=== PATIENT | female | born 1950 | race Caucasian/White ===

== ENCOUNTER → 2016-07-05 | Outpatient (CLI) | payer OTHER ==
[2014-08-25 18:43] VITALS: BP 124/64
[~2016-07-05] VITALS: Ht 162.6 cm; Wt 67.6 kg
[~2016-07-05] MED LIST: ALEN70TA3 PO; LISI10TA2 PO; MELO-150 PO; NORMAL SALINE IV ONE; SIMV5TAB5 PO; SINCALIDE IV ONE
--- NOTE | 2016-07-05 11:00 | RAD ---
Radionuclide hepatobiliary scan with gallbladder ejection fraction, 07/05/2016: History: Chronic epigastric pain Following IV injection of 5.5 mCi of technetium 99m Choletec there was prompt uptake of the radionuclide from the blood stream by the liver. Initial imaging out to one hour showed increasing activity in the gallbladder without extension into the small bowel. Following IV injection of 1.4 mcg of cholecystokinin activity does extend into the small bowel. There is good gallbladder emptying with the gallbladder ejection fraction calculated at 95%. IMPRESSION: 1. No evidence of cystic duct or common bile duct obstruction. 2. The gallbladder ejection fraction is 95%.
== END | disposition home or self-care (01) ==
LOC: NM 06:37
PROVIDERS: ATTEND Internal Medicine Gastroenterology
DX: R10.13 Epigastric pain (principal); R11.0 Nausea
CPT/HCPCS: 78226; 96374; 96375; J2805

== ENCOUNTER 2016-08-03 22:18 | Observation (INO) | payer OTHER ==
[~2016-08-03] VITALS: Ht 162.6 cm; Wt 67.3 kg
[~2016-08-03 22:18] MED LIST changes: -NORMAL SALINE IV ONE; -SINCALIDE IV ONE
--- NOTE | 2016-08-03 22:41 | PHYS DOC ---
Past Medical History Past Medical History: High Cholesterol, Hypertension Past Surgical History: Hysterectomy, Other Additional Past Surgical Histo: Exploratory abd sx Alcohol Use: Rarely Drug Use: None Adult General Chief Complaint Chief Complaint: CHEST PAIN [facility] HPI This a 66-year-old female with history of hypertension is presenting with 8-10 hours of substernal chest pain that she describes as a pressure sensation in her chest. She states it came on at rest while she was watching TV earlier today. She states she has no known cardiac history that she is aware of. Her last stress test was over 5 years ago. She is a nonsmoker. She rates her pain a 7 out of 10. Patient did recently travel to [place] one week ago which is a [address] She denies any history of blood clots. She denies any calf tenderness or swelling. Upon my initial assessment, the patient does not appear to be in any acute distress. She is saturating at 100% on room air. She is afebrile nontoxic in appearance. Blood pressure is elevated at 202/98. She states it usually runs in the 150s systolic. She takes lisinopril at night and has yet to take this dose. She denies any nausea or vomiting. She denies any significant shortness of breath. Activities do not make her pain worse. Review of Systems Review of Systems Constitutional: Denies fever or chills [] Eyes: Denies change in visual acuity, redness, or eye pain [] HENT: Denies nasal congestion or sore throat [] Respiratory: Denies cough, denies shortness of breath [] Cardiovascular: No additional information not addressed in HPI [] GI: Denies abdominal pain, nausea, vomiting, bloody stools or diarrhea [] : Denies dysuria or hematuria [] Musculoskeletal: Denies back pain or joint pain [] Integument: Denies rash or skin lesions [] Neurologic: Denies headache, focal weakness or sensory changes [] Endocrine: Denies polyuria or polydipsia [] Current Medications Current Medications Current Medications Medications (Trade) Dose Ordered Sig/Sheeba Start Time Stop Time Status Last Admin Dose Admin Aspirin (Jared Aspirin) 325 mg 1X ONCE 08/03/16 23:30 08/03/16 23:31 DC 08/03/16 23:29 325 MG Allergies Allergies Allergies Coded Allergies Type Severity Reaction Last Updated Verified Penicillins Allergy Intermediate Rash 08/25/14 Yes Physical Exam Physical Exam Constitutional: Well developed, well nourished, no acute distress, non-toxic appearance. [] HENT: Normocephalic, atraumatic, bilateral external ears normal, oropharynx moist, no oral exudates, nose normal. [] Eyes: PERRLA, EOMI, conjunctiva normal, no discharge. [] Neck: Normal range of motion, no tenderness, supple, no stridor. [] Cardiovascular:Heart rate regular rhythm, no murmur [] Lungs & Thorax: Bilateral breath sounds clear to auscultation [] Abdomen: Bowel sounds normal, soft, no tenderness, no masses, no pulsatile masses. [] Skin: Warm, dry, no erythema, no rash. [] Back: No tenderness, no CVA tenderness. [] Extremities: No tenderness, no cyanosis, no clubbing, ROM intact, no edema. [] Neurologic: Alert and oriented X 3, normal motor function, normal sensory function, no focal deficits noted. [] Psychologic: Affect normal, judgement normal, mood normal. [] Current Patient Data Vital Signs Vital Signs Date Time Temp Pulse Resp B/P (MAP) Pulse Ox O2 Delivery O2 Flow Rate FiO2 08/03/16 23:00 74 15 164/82 (109) 97 Room Air 08/03/16 22:44 98.4 98.4 Lab Values Laboratory Tests Test 08/03/16 22:33 White Blood Count 8.8 x10^3/uL (4.0-11.0) Red Blood Count 4.06 x10^6/uL (3.50-5.40) Hemoglobin 12.7 g/dL (12.0-15.5) Hematocrit 36.5 % (36.0-47.0) Mean Corpuscular Volume 90 fL (79-100) Mean Corpuscular Hemoglobin 31 pg (25-35) Mean Corpuscular Hemoglobin Concent 35 g/dL (31-37) Red Cell Distribution Width 13.1 % (11.5-14.5) Platelet Count 279 x10^3/uL (140-400) Neutrophils (%) (Auto) 47 % (31-73) Lymphocytes (%) (Auto) 40 % (24-48) Monocytes (%) (Auto) 9 % (0-9) Eosinophils (%) (Auto) 3 % (0-3) Basophils (%) (Auto) 1 % (0-3) Neutrophils # (Auto) 4.2 x10^3uL (1.8-7.7) Lymphocytes # (Auto) 3.5 x10^3/uL (1.0-4.8) Monocytes # (Auto) 0.8 x10^3/uL (0.0-1.1) Eosinophils # (Auto) 0.2 x10^3/uL (0.0-0.7) Basophils # (Auto) 0.1 x10^3/uL (0.0-0.2) D-Dimer (Elaina) 0.34 ug/mlFEU (0.00-0.50) Sodium Level 140 mmol/L (136-145) Potassium Level 4.0 mmol/L (3.5-5.1) Chloride Level 102 mmol/L (98-107) Carbon Dioxide Level 30 mmol/L (21-32) Anion Gap 8 (6-14) Blood Urea Nitrogen 17 mg/dL (7-20) Creatinine 1.0 mg/dL (0.6-1.0) Estimated GFR (Cockcroft-Gault) 55.1 Glucose Level 128 mg/dL (70-99) H Calcium Level 9.7 mg/dL (8.5-10.1) Troponin I Quantitative < 0.017 ng/mL (0.000-0.055) Laboratory Tests 08/03/16 22:33 Laboratory Tests 08/03/16 22:33 EKG EKG EKG as interpreted by co shows a sinus rhythm with a rate of 75 bpm. There is a leftward axis. There is no acute injury pattern on this EKG. Intervals are normal. There is no ectopy. Radiology/Procedures Radiology/Procedures One view chest as interpreted by me did not reveal an acute cardiopulmonary process. Course & Med Decision Making Course & Med Decision Making Pertinent Labs and Imaging studies reviewed. (See chart for details) 66-year-old female with ongoing chest pain will have full laboratory workup including a chest x-ray. Her EKG at this time is unremarkable. Due to her history of recent travel a d-dimer will also be ordered. Her laboratory workup and chest xray are unremarkable. Her troponin and d-dimer are negative. Patient was given a nitroglycerin tablet and a full aspirin. Her case was discussed with the hospitalist, Dr. Rai, who agreed to admit for chest pain rule out with cardiology consult and repeat troponins ordered for the floor. Dragon Disclaimer Dragon Disclaimer This electronic medical record was generated, in whole or in part, using a voice recognition dictation system. Departure Departure Impression: Primary Impression: Chest pain Disposition: HOME, SELF-CARE Admitting Physician: Sydney Rai Condition: STABLE Referrals: SOCORRO LEDESMA MD (PCP) CHANTELLE REYES DO August 03, 2016 22:41
[2016-08-03 22:47] LABS: BASO # 0.1 x10^3/uL (0.0-0.2); BASO % 1 % (0-3); EOS % 3 % (0-3); HEMATOCRIT 36.5 % (36.0-47.0); HEMOGLOBIN 12.7 g/dL (12.0-15.5); LYMPH # 3.5 x10^3/uL (1.0-4.8); LYMPH % 40 % (24-48); MEAN CORPUSCULAR HEMOGLOBIN 31 pg (25-35); MEAN CORPUSCULAR HGB CONC 35 g/dL (31-37); MEAN CORPUSCULAR VOLUME 90 fL (79-100); MONO % 9 % (0-9); NEUT % 47 % (31-73); PLATELET COUNT 279 x10^3/uL (140-400); RED BLOOD COUNT 4.06 x10^6/uL (3.50-5.40); RED CELL DISTRIBUTION WIDTH 13.1 % (11.5-14.5); WHITE BLOOD COUNT 8.8 x10^3/uL (4.0-11.0)
[2016-08-03 23:00] LABS: CALCIUM 9.7 mg/dL (8.5-10.1); GFR 55.1
[2016-08-03] MEDS ORDERED: ASPIRIN 325 MG TABLET PO ONE (23:30)
[2016-08-04] MEDS ORDERED: ACETAMINOPHEN 325 MG TABLET. PO PRN
[2016-08-04] MEDS ORDERED: NITROGLYCERIN SUBLINGUAL 0.4 MG BOTTLE OF 25. SL PRN
[2016-08-04] MEDS ORDERED: ONDANSETRON PF 4 MG/2 ML VIAL. IV PRN
[2016-08-04 00:55] VITALS: BP 163/68
[2016-08-04 02:00] VITALS: BP 110/48
--- NOTE | 2016-08-04 02:11 | ACF ---
Admission Forms Criteria CHEST PAIN Clinical Indications for Admission to Inpatient Care (Place 'X' for any and all applicable criteria): Admission is indicated for chest pain and ANY ONE of the following(1)(2)(3)(4)(5 ): [ ]I. Angina with acute coronary syndrome (Also use Myocardial Infarction or Angina guideline) [ ]II. Hemodynamic instability [ ]III. Angina needing acute intervention as indicated by ALL of the following( 11)(12): [ ]a) Unstable angina is present as indicated by angina that is ANY ONE of the following: [ ]i) New onset [ ]ii) Nocturnal [ ]iii) Prolonged at rest [ ]iv) Progressive [ ]b) Angina warrants acute intervention as indicated by ANY ONE of the following: [ ]i) Recurrent angina (e.g, not responding as previously to treatment) [ ]ii) Angina at rest or with low-level activities despite initial medical therapy [ ]iii) New or presumably new ST-segment depression on ECG [ ]iv) Signs or symptoms of heart failure (eg, dyspnea, pulmonary edema) [ ]v) New or worsening mitral regurgitation [ ]vi) Hemodynamic instability [ ]vii) Dangerous arrhythmia (eg, sustained ventricular tachycardia) [ ]viii) History of percutaneous coronary intervention within 6 months [ ]ix) History of coronary artery bypass graft surgery [ ]x) PRITI risk score of 2 or greater[A] [ ]xi) History of Diabetes(14) [ ]xii) High-risk cardiac ischemia findings on noninvasive testing (e.g, echocardiogram, treadmill testing, nuclear scan) [ ]xiii) Chronic renal insufficiency (ie, estimated GFR less than 60 mL/min/1.732m) [ ]xiv) Left ventricular ejection fraction less than 40% [ ]IV. Evidence of NC (eg, cardiac biomarkers positive, ST-segment elevation on ECG) also use Myocardial Infarction Criteria Form. [ ]V. Pulmonary edema [ ]. Respiratory distress [ ]VII. Chest pain indicative of serious diagnosis other than coronary artery disease (eg, aortic dissection) [ ]VIII. Contraindications and/or Inappropriate clinical situations for Observational Care in patients with Chest Pain, when ANY ONE of the following is required: [ ]a) Patient with risk factor for pulmonary embolism, acute coronary syndrome and myocardial infarction (18) [ ]b) Patient with Pulmonary embolism require an average LOS of 4.3 days, therefore emergency department observation management is inappropriate 18,23 [ ]c) Painful condition/s in the elderly, have the highest rate of recidivism after emergency department observation management (10.8%) 20,21,22 [ ]d) Elevated cardiac biomarker requires intensive and exhaustive care (19) [X]IX. General contraindications and/or Inappropriate clinical situations for Observational Care in patients with Chest Pain, when ANY ONE of the following is required: [X]a) Prediction of prolongation of LOS based on ANY ONE of the following may be considered as a contraindication for observational care 2, 3, 4, 5, 6, 7, 8, 9, 10, 11 [X]i) Age > 65 yrs. [ ]ii) Patient arriving by ambulance [ ]iii) Patient with high acuity [ ]iv) Patient requiring vital sign monitoring [ ]v) Patient on IV medication [ ]b) Systolic blood pressures 180mmHg 3,12 [ ]c) Patient with altered mental status including delirium and other alteration of consciousness, (3) [ ]d) Patient whose discharge disposition will be to a fci home or rehabilitation home should not be managed in Emergency Department Observation Unit. CMS rule requires 3 days hospital stay before such placement. 3,13 [ ]e) Patient with failure to thrive due to broad array of etiologies 3,16,17 [ ]f) Inability to ambulate 3,14 Extended stay beyond goal length of stay may be needed for (1)(28): [ ]a) Specific condition diagnosed after evaluation (eg, pulmonary embolism, aortic dissection) [ ]b) Unstable angina [ ]c) Continued suspicion of acute coronary syndrome with inability to complete needed cardiac evaluation (eg, patient clinically unable to undergo stress testing) [ ]d) Myocardial infarction (Contents from ANGINA and CHEST PAIN clinical indications for admission to inpatient care have been integrated in this form) The original [facility] content created by [employer] has been revised. The portions of the content which have been revised are identified through the use of italic text or in bold, and [facility] has neither reviewed nor approved the modified material. All other unmodified content is copyright [facility]. Please see references footnoted in the original [facility] edition 2016 Admission Criteria Met?: Yes TAMMY BRYANT August 04, 2016 02:10
[2016-08-04] MEDS ORDERED: CARV12.52 PO (03:57)
[2016-08-04] MEDS ORDERED: PANT40TA5 PO (03:58)
--- NOTE | 2016-08-04 06:05 | EKG ---
[facility] [address] [place] [address] Test Date: 2016-08-03 Test Time: 22:26:31 Pat Name: SCOTT ALCALA Department: Room: 209 Gender: F Core Blower: : 1950 Requested By: CHANTELLE REYES Order Number: [id number] Reading MD: Brett Wang Measurements Intervals [place] Rate: 75 P: 44 OK: 170 QRS: -4 QRSD: 78 T: 46 QT: 370 QTc: 416 Interpretive Statements SINUS RHYTHM Electronically Signed On 08-07-2016 9:33:17 CDT by Brett Wang
--- NOTE | 2016-08-04 07:14 | RAD ---
Exam performed: One view chest. Indication: chest pain Date of Service: 08/04/2016 12:25 AM 08/25/14 Single AP upright portable view chest findings: Cardiomediastinal silhouette is within limits of normal. No acute infiltrates, effusion or pneumothorax is detected. The bony structures are normal. Impression: No acute cardiopulmonary process is detected.
[2016-08-04 07:30] VITALS: BP 146/75
--- NOTE | 2016-08-04 10:04 | PDOC2 ---
JOSELYN WITT CRIMINALIST 08/04/16 1004: CARDIAC CONSULT DATE OF CONSULT Date of Consult DATE: 08/04/16 TIME: 09:59 REASON FOR CONSULT Reason for Consult: chest pain REFERRING PHYSICIAN Referring Physician: Dr. Adolph Lyle SOURCE Source: Chart review, Patient HISTORY OF PRESENT ILLNESS HISTORY OF PRESENT ILLNESS 66 year old female who developed substernal chest pressure without radiation about 0800 yesterday after eating a granola bar and drinking coffee while getting ready for work. No radiation of pain and no associated diaphoresis, dizziness or nausea. Pain persisted through the day and became more of a burning sensation yesterday evening. Has also had recent epigastric pain and had a negative HIDA scan in June. Troponin levels not consistent with AMI and no acute changes in EKG. Malignant HTN POA with SBP > 200. Pain was similar to what she had 2 years ago though more severe yesterday. Unclear when she had her last stress test. Currently pain free. Reason for Visit: chest pain PAST MEDICAL HISTORY Cardiovascular: HTN, Hyperlipidemia GI: GERD, Other (epigastric pain - evaluation negative for gallstones) Renal/: Other (renal calculi) Endocrine: Osteoporosis FAMILY HISTORY Family History: Cancer (lung, mother & father), Coronary Artery Disease ( sister with CABG in her late 60s), Diabetes (maternal GF), Heart Disease ( maternal GF) SOCIAL HISTORY Smoke: No ALCOHOL: none Drugs: None CURRENT MEDICATIONS CURRENT MEDICATIONS Current Medications Medications (Trade) Dose Ordered Sig/Sheeba Route PRN Reason Start Time Stop Time Status Last Admin Dose Admin Aspirin (Jared Aspirin) 325 mg 1X ONCE PO 08/03/16 23:30 08/03/16 23:31 DC 08/03/16 23:29 Nitroglycerin (Nitrostat) 0.4 mg PRN Q5MIN PRN SL CHEST PAIN 08/04/16 00:00 08/04/16 00:37 ALLERGIES ALLERGIES: Coded Allergies: Penicillins (Verified Allergy, Intermediate, Rash, 08/25/14) ROS Review of System 14 point review with pertinent positives in HPI PHYSICAL EXAM General: Alert, Oriented X3, Cooperative, No acute distress HEENT: Atraumatic, PERRLA Lungs: Clear to auscultation, Normal air movement Heart: Regular rate, Normal S1, Normal S2, No murmurs, Other (no carotid bruits ; CP not reproducible) Abdomen: Normal bowel sounds, Soft, No tenderness Extremities: No edema, Normal pulses Skin: No rashes Neuro: Normal speech Psych/Mental Status: Mental status NL, Mood NL MUSCULOSKELETAL: No deformity VITALS VITALS Vital Signs Date Time Temp Pulse Resp B/P (MAP) Pulse Ox O2 Delivery O2 Flow Rate FiO2 08/04/16 08:00 Room Air 08/04/16 07:30 97.9 74 18 146/75 (98) 97 97.9 LABS Lab: Laboratory Tests Test 08/03/16 22:33 08/04/16 05:50 White Blood Count 8.8 x10^3/uL (4.0-11.0) Red Blood Count 4.06 x10^6/uL (3.50-5.40) Hemoglobin 12.7 g/dL (12.0-15.5) Hematocrit 36.5 % (36.0-47.0) Mean Corpuscular Volume 90 fL (79-100) Mean Corpuscular Hemoglobin 31 pg (25-35) Mean Corpuscular Hemoglobin Concent 35 g/dL (31-37) Red Cell Distribution Width 13.1 % (11.5-14.5) Platelet Count 279 x10^3/uL (140-400) Neutrophils (%) (Auto) 47 % (31-73) Lymphocytes (%) (Auto) 40 % (24-48) Monocytes (%) (Auto) 9 % (0-9) Eosinophils (%) (Auto) 3 % (0-3) Basophils (%) (Auto) 1 % (0-3) Neutrophils # (Auto) 4.2 x10^3uL (1.8-7.7) Lymphocytes # (Auto) 3.5 x10^3/uL (1.0-4.8) Monocytes # (Auto) 0.8 x10^3/uL (0.0-1.1) Eosinophils # (Auto) 0.2 x10^3/uL (0.0-0.7) Basophils # (Auto) 0.1 x10^3/uL (0.0-0.2) D-Dimer (Elaina) 0.34 ug/mlFEU (0.00-0.50) Sodium Level 140 mmol/L (136-145) Potassium Level 4.0 mmol/L (3.5-5.1) Chloride Level 102 mmol/L (98-107) Carbon Dioxide Level 30 mmol/L (21-32) Anion Gap 8 (6-14) Blood Urea Nitrogen 17 mg/dL (7-20) Creatinine 1.0 mg/dL (0.6-1.0) Estimated GFR (Cockcroft-Gault) 55.1 Glucose Level 128 mg/dL (70-99) Calcium Level 9.7 mg/dL (8.5-10.1) Troponin I Quantitative < 0.017 ng/mL (0.000-0.055) < 0.017 ng/mL (0.000-0.055) IMAGES IMAGES CXR without acute findings EKG EKG no acute changes ECHOCARDIOGRAM ECHOCARDIOGRAM 08/2014: TTE: The left ventricular systolic function is normal and the ejection fraction is within normal range. The Ejection Fraction is 65-70%. There is mild concentric left ventricular hypertrophy. Doppler and Color-flow revealed trace to mild mitral regurgitation. Doppler and Color Flow revealed mild tricuspid regurgitation. The PA pressure was estimated at 36 mmHg. Doppler and Color Flow revealed trace pulmonic valvular regurgitation. ASSESSMENT/PLAN ASSESSMENT/PLAN 1. chest pain EKG and troponin levels not consistent with ? GERD or related to HTN given risk factors recommend MPI - she reports being unable to walk treadmill in non-ischemic MPI - may discharge later today 2. malignant HTN POA normalized reports not taking meds yesterday 3. HLD check FLP continue statin therapy Problems: MARTHA BELLO MD 08/05/16 0831: CARDIAC CONSULT ALLERGIES ALLERGIES: Coded Allergies: Penicillins (Verified Allergy, Intermediate, Rash, 08/25/14) ASSESSMENT/PLAN ASSESSMENT/PLAN Late entry for 08/04/2016 Pt. seen and examined. 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 Compliant with meds. Denies any syncope Normal exam. MPI negative. Possible apical defect, but cannot rule out artifact. Low risk overall Discussed with patient, if she has persistent fatigue may pursue cath. Will optimize BP first. Will f/u in 3-4 days in the office. Thanks for consult. ok to dc from CV perspective. Problems: JOSELYN WITT APRN August 04, 2016 10:04 MARTHA BELLO MD August 05, 2016 08:31
[2016-08-04 10:37] LABS: CHOLESTEROL/HDL RATIO 6.2
[2016-08-04 10:59] VITALS: BP 149/73
[2016-08-04] MEDS ORDERED: REGADENOSON 0.4 MG/5 ML DISP.SYRIN. IV ONE (12:30)
[2016-08-04] MEDS ORDERED: DILT180C64 (13:52)
[2016-08-04 14:34] VITALS: BP 169/77
[2016-08-04] MEDS ORDERED: LISINOPRIL 40 MG TABLET. PO SCH (15:00)
[2016-08-04] MEDS ORDERED: MELOXICAM 7.5 MG TABLET PO SCH (15:00)
[2016-08-04] MEDS ORDERED: PANTOPRAZOLE 40 MG TABLET.DR. PO SCH (15:00)
--- NOTE | 2016-08-04 16:01 | RAD ---
APPROVED REPORT Test Type: Pharmacological Stress Nurse/Tech: Dianne Hale R.N. Test Indications: chest pain Cardiac History: htn, Medications: see ehr Medical History: see ehr Resting ECG: sr Resting Heart Rate: 63 bpm Resting Blood Pressure: 171/72mmHg Pretest Chest Pain: No chest pain Nurse/Tech Notes Consent: The procedure was explained to the patient in lay terms. Informed consent was witnessed. Miguel eout was entered into [employer]. History and Stress Test performed by Dianne Hale R.N. Pharm. Details Pharmacologic stress testing was performed using 0.4mg per 5ml of regadenoson given intravenously ove r 7-10 seconds. Stress Symptoms No chest pain or symptoms.Dyspnea POST EXERCISE Reason for Termination: Infusion complete Target HR: No Max HR: 115 bpm Max Blood Pressure: 170/72mmHg Chest Pain: No. Arrhythmia: No. ST Change: No. INTERPRETATION Stress EKG Conclusion: No evidence of stress induced EKG changes. Imaging Protocol IMAGE PROTOCOL: Rest Tc-99m/stress Tc-99m 1 day Rest: Stress: Viability: Radiopharm.Tc99m [id number] Sestamibi Soio78iKy 33mCi Duration 20min. 15min. Img Date 08/04/2016 08/04/2016 Inj-Img [id number]. 60min. Rest Admin Site:IV - Left AntecubitalAdministrator:RT Abhijit (R)(N) Stress Admin Site: IV - Left AntecubitalAdministrator: RT Abhijit (R)(N) STRESS DATA End Diast. Vol.55.0mlAv. Heart Rate77.0bpm LVEDV index BSA1.0mlCardiac Output0.1L/min End Syst. Vol.4.0mlCO Index BSA3.9L/min LVESV index BSA0.0mlMyocardial Jxhv039.0g Eject. Vilivuxs12.0% Stress Rates Pk. Fill Rate3.53EDV/secLVtime Pk. Fill 197.71msec Pk. Empty Rate4.59ESV/secLVtime Pk. Irfdj547.02msec 03/28 Pk. Fill1.52EDV/sec Stress Scores Regional WT0.00Summed WT0.00 Regional WM0.00Summed WM0.00 LV Perfusion There is a very minimal perfusion defect noted at the apex that appears to be fully reversible but no t quantified on automated evaluation. This is likely artifactual in nature and likely does not repres ent significant ischemia. Wall Motion Normal wall motion with EF > 70%. LV Perf. Quant 17 Seg. SSS1.00 17 Seg. SRS0.00 17 Seg. SDS1.00 Stress Defect Extent (% LAD)0.00Rest Defect Extent (% LAD)0.00Rev. Defect Extent (% LAD)0.00 Stress Defect Extent (% LCX) 0.00Rest Defect Extent (% LCX)0.00Rev. Defect Extent (% LCX)0.00 Stress Defect Extent (% RCA)0.00Rest Defect Extent (% RCA)0.00Rev. Defect Extent (% RCA)0.00 Stress Defect Extent (% MARBIN)0.00Rest Defect Extent (% MARBIN)0.00Rev. Defect Extent (% MARBIN)0.00 Other Information Quality:Average Risk Assessment: Low Risk Conclusion 1. No evidence of stress induced EKG changes. 2. Minimal apical perfusion defect, likely artifact. 3. Normal EF at > 70% 4. Low risk study
[2016-08-04] MEDS ORDERED: CARVEDILOL 12.5 MG TABLET. PO SCH (17:00)
[2016-08-04 17:49] VITALS: BP 160/77
--- NOTE | 2016-08-04 19:11 | SSS ---
ADMIT DATE: 08/04/2016 CHIEF COMPLAINT: Chest pain. HISTORY OF PRESENT ILLNESS: The patient is a 66-year-old woman with history of GERD, who presented to the Emergency Room with substernal chest pain in the lower half of her chest. She denies any radiation to anywhere, denies any nausea, vomiting, diaphoresis or shortness of breath. She relates that the pain essentially started in the morning when she was eating a granola bar for breakfast. This seems to be sitting wrong in her stomach all day long. She had mentioned it to her colleagues at work and was recommended to go to the Emergency Room. When pain persisted in the evening, she followed the advice and presented to the ER. Currently, her pain is actually gone. She denies any other symptoms. PAST MEDICAL HISTORY: GERD, actually has had workup for upper abdominal issues including ultrasound for gallbladder disease and HIDA scan; hypertension, hyperlipidemia and osteoporosis. FAMILY HISTORY: Positive for coronary artery disease with sister in her is late 67 of CABG, diabetes and heart disease. SOCIAL HISTORY: Lives with her , still works part-time as a welder apprentice. No toxic habits. ALLERGIES: PENICILLINS. MEDICATIONS: MAR reconciled with home medications. REVIEW OF SYSTEMS: Symptoms currently resolved, has no symptoms in entire organ system review. PHYSICAL EXAMINATION: VITAL SIGNS: From today show a blood pressure of 149/73, heart rate of 68, respiratory rate at 18. She is afebrile. GENERAL: This is a 66-year-old woman, well-nourished, well-developed. HEENT: Shows no scleral icterus. NECK: Supple. LUNGS: Clear to auscultation bilaterally. HEART: Regular rate and rhythm without any murmurs. ABDOMEN: Has positive bowel sounds, soft, nontender. EXTREMITIES: Show no edema, no clubbing, no cyanosis. SKIN: Warm, soft and dry without any rash. LABORATORY DATA: CBC with a WBC of 8.8, hemoglobin 12.7, platelets of 279. Chemistries with a BUN and creatinine of 17 and 1, normal electrolytes. Troponins negative x 3. LFTs obtained with a cholesterol of 186, triglycerides 199. IMAGING STUDIES: Chest x-ray from the Emergency Room shows no acute cardiopulmonary process. MPI obtained earlier today, shows no evidence of stress induced EKG changes, minimal apical perfusion defect likely artifact and normal EF at greater than 70 all in all a low-risk study. ASSESSMENT AND PLAN: The patient is a 66-year-old woman, who presented with atypical chest pain and with a history of gastroesophageal reflux disease. The pain was slightly different in location than prior, she was worked up for heart issues including stress test, which was negative. No further interventions will be indicated. Symptoms have resolved. DISCHARGE DATE: 08/04/2016. DISCHARGE DISPOSITION: To home. DISCHARGE CONDITION: Improved. DISCHARGE DIAGNOSIS: Gastroesophageal reflux disease. DISCHARGE MEDICATIONS: Please refer to MAR. DISCHARGE INSTRUCTIONS: The patient will follow up with PCP within 1 week. Consider EGD. Consider changing Fosamax to zoledronic acid infusion. TRES BANUELOS MD DR: UR/nts JOB#: [id number] / [id number] [facility]ORRO Bowser [facility]
[2016-08-04] MEDS ORDERED: SIMVASTATIN 10 MG TABLET PO SCH (21:00)
[2016-08-11] MEDS ORDERED: NON FORMULARY ITEM (Alendronate Sodium (Fosamax) 70 MG) PO SCH (09:00)
== END 2016-08-04 18:33 | disposition home or self-care (01) ==
LOC: ER 22:18 → 2 NORTH 23:31 → INTOOBSV 23:31
PROVIDERS: ADMIT Internal Medicine; ATTEND Internal Medicine
DX: K21.9 Gastro-esophageal reflux disease without esophagitis (principal); E78.00 Pure hypercholesterolemia, unspecified; E78.5 Hyperlipidemia, unspecified; I10 Essential (primary) hypertension; M81.0 Age-related osteoporosis without current pathological fracture; Z87.442 Personal history of urinary calculi; Z90.710 Acquired absence of both cervix and uterus
CPT/HCPCS: 36415; 71010; 78452; 80048; 80061; 84484; 85027; 85379; 93005; 93017; 96375; 96376; 99285; A9500; G0378; J2785; 96374; G0379

== ENCOUNTER → 2017-03-02 | Outpatient (CLI) | payer OTHER ==
[2017-03-02 10:40] LABS: ALBUMIN 4.2 g/dL (3.4-5.0); ALBUMIN/GLOBULIN RATIO 1.1 (1.0-1.7); ALK PHOS 78 U/L (46-116); ALT (SGPT) 29 U/L (14-59); ANION GAP 8 (6-14); AST (SGOT) 20 U/L (15-37); BLOOD UREA NITROGEN 24 mg/dL (7-20); BUN/CREATININE RATIO 22 (6-20); CALCIUM 9.7 mg/dL (8.5-10.1); CARBON DIOXIDE 31 mmol/L (21-32); CHLORIDE 100 mmol/L (98-107); CHOLESTEROL 195 mg/dL (0-200); CREATININE 1.1 mg/dL (0.6-1.0); GFR 49.2; GLUCOSE 120 mg/dL (70-99); HDLC 38 mg/dL (40-60); NON-HDL CHOLESTEROL 157 mg/dL (0-129); SODIUM 139 mmol/L (136-145); TOTAL BILIRUBIN 0.3 mg/dL (0.2-1.0); TOTAL PROTEIN 8.2 g/dL (6.4-8.2); TRIGLYCERIDES 159 mg/dL (0-150)
[2017-03-02 10:43] LABS: CHOLESTEROL/HDL RATIO 5.1
== END | disposition home or self-care (01) ==
LOC: US 09:46
DX: I10 Essential (primary) hypertension (principal); I65.23 Occlusion and stenosis of bilateral carotid arteries
CPT/HCPCS: 36415; 80053; 80061; 93880; 93975

== ENCOUNTER 2018-01-27 10:54 | Inpatient (IN) | payer OTHER ==
[2018-01-27] VITALS (11 sets, daily range): BP systolic 104–156; BP diastolic 44–81
[~2018-01-27] VITALS: Ht 162.6 cm; Wt 66.0 kg
[~2018-01-27 10:54] MED LIST changes: +CARV12.52 PO; +DILT180C64; -MELO-150 PO; +MELO15TA23 PO; +PANT40TA5 PO
[2018-01-27] MEDS ORDERED: IV NORMAL SALINE 1000ML BAG 1,000 ML IV ONE (12:45)
[2018-01-27] MEDS ORDERED: MORPHINE SULFATE 4 MG/ML VIAL. IV PRN (13:30)
[2018-01-27] MEDS ORDERED: ONDANSETRON PF 4 MG/2 ML VIAL. IV PRN (13:30)
[2018-01-27] MEDS ORDERED: MORPHINE SULFATE 2 MG/ML VIAL. IV PRN ×2 (13:30→17:30)
[2018-01-27] MEDS: MEROPENEM 500 MG in IV NORMAL SALINE 50ML 50 ML IV SCH ×2 (14:08→21:35)
[2018-01-27 14:34] LABS: CALCIUM 8.6 mg/dL (8.5-10.1); CREATININE 1.8 mg/dL (0.6-1.0); GFR 27.8; POTASSIUM 4.4 mmol/L (3.5-5.1)
[2018-01-27] MEDS ORDERED: ACETAMINOPHEN 325 MG TABLET. PO PRN (16:45)
[2018-01-27] MEDS ORDERED: IOHEXOL 300 MG/ML 100ML VIAL. ONE (17:06)
[2018-01-27] MEDS ORDERED: fentaNYL PF VIAL 100 MCG/2 ML VIAL ONE (17:16)
[2018-01-27] MEDS ORDERED: PROPOFOL 20 ML IV ONE (17:16)
[2018-01-27] MEDS ORDERED: LIDOCAINE 2% PF Vial for OR 5 ML VIAL. ONE (17:16)
[2018-01-27] MEDS ORDERED: ONDANSETRON PF 4 MG/2 ML VIAL. ONE (17:16)
[2018-01-27] MEDS ORDERED: SEVOFLURANE 61 TO 120 MINUTES. IH ONE (17:16)
[2018-01-27] MEDS ORDERED: DEXAMETHASONE SOD PHOS 20 MG/5 ML VIAL. ONE (17:16)
[2018-01-27] MEDS ORDERED: IV RINGERS,LACTATED 1000ML 1,000 ML IV SCH (17:28)
[2018-01-27] MEDS ORDERED: LIDOCAINE 1% PF 2 ML VIAL. ID PRN (17:30)
[2018-01-27] MEDS ORDERED: PROCHLORPERAZINE 10 MG/2 ML VIAL. IV PRN (17:30)
[2018-01-27] MEDS ORDERED: fentaNYL PF VIAL 100 MCG/2 ML VIAL IV PRN ×2 (17:30)
[2018-01-27] MEDS ORDERED: HYDROmorphone 2 MG/ML VIAL IV PRN (17:30)
--- NOTE | 2018-01-27 17:34 | PDOC2 ---
UROLOGY CONSULT Date of Consult Date of Consult DATE: 01/27/18 TIME: 17:24 Reason for Consult Reason for Consult: right ureteral stone, urinary treat infection Referring Physician Referring Physician: Dr. Granger Identification/Chief Complaint Chief Complaint right abdominal pain Source Source: Chart review, Patient History of Present Illness Reason for Visit: 68 yo female with no past h/o urinary tract stones who presented to [facility] yest after developing right flank pain and nausea yesterday AM. CT scan there identified a 5 mm distal R ureteral stone. She was admitted for pain control and observation however, noted an increase in Cr to 1.6 (1.8 this PM) this AM and development of a leukocytosis (WBC 7 ->17) and persistent pain. She was transferred for further care. Prior to transfer she was hypotensive (SPB 80s). On arrival she was febrile to 100.4. Temperatures have increased to 101.7 on most recent check. She endorses having chills. UA from referring hospital--+ leukocyte esterase, bacteria, WBC 1-4. She has been started on Meropenem. Past Medical History Cardiovascular: HTN, Hyperlipidemia GI: GERD, Other Renal/: Other Endocrine: Osteoporosis Family History Family History: Cancer, Coronary Artery Disease, Diabetes, Heart Disease Social History ALCOHOL: none Drugs: None Current Medications Current Medications Current Medications Acetaminophen (Tylenol) 650 mg PRN Q6HRS PRN PO pain, fever Last administered on 01/27/18at 16:47; Start 01/27/18 at 16:45 Carvedilol (Coreg) 12.5 mg BIDWMEALS PO ; Start 01/27/18 at 17:00 Dexamethasone Sodium Phosphate (Decadron) 20 mg STK-MED ONCE .ROUTE ; Start 01/27/18 at 17:16; Stop 01/27/18 at 17:17; Status DC Diltiazem HCl (Cardizem 24hr Cd) 180 mg DAILY PO ; Start 01/28/18 at 09:00 Fentanyl Citrate (Fentanyl 2ml Vial) 100 mcg STK-MED ONCE .ROUTE ; Start at 17:16; Stop 01/27/18 at 17:17; Status DC Iohexol (Omnipaque 300 Mg/ml) 100 ml STK-MED ONCE .ROUTE ; Start 01/27/18 at 17: 06; Stop 01/27/18 at 17:07; Status DC Lidocaine HCl (Lidocaine Pf 2% Vial) 5 ml STK-MED ONCE .ROUTE ; Start 01/27/18 at 17:16; Stop 01/27/18 at 17:17; Status DC Meropenem 500 mg/ Sodium Chloride 50 ml @ 100 mls/hr Q8HRS IV Last administered on 01/27/18at 14:08; Start 01/27/18 at 14:00 Morphine Sulfate (Morphine Sulfate) 2 mg PRN Q2HR PRN IV MODERATE PAIN; Start 01/27/18 at 13:30 Morphine Sulfate (Morphine Sulfate) 4 mg PRN Q4HRS PRN IV SEVERE PAIN; Start 01/27/18 at 13:30 Non-Formulary Medication (Alendronate Sodium (Fosamax)) 70 mg WEEKLY PO ; Start 02/03/18 at 09:00; Status UNV Ondansetron HCl (Zofran) 4 mg PRN Q4HRS PRN IV NAUSEA/VOMITING; Start 01/27/18 at 13:30 Ondansetron HCl (Zofran) 4 mg STK-MED ONCE .ROUTE ; Start 01/27/18 at 17:16; Stop 01/27/18 at 17:17; Status DC Pantoprazole Sodium (Protonix) 40 mg DAILYAC PO ; Start 01/28/18 at 07:30 Propofol 20 ml @ As Directed STK-MED ONCE IV ; Start 01/27/18 at 17:16; Stop at 17:17; Status DC Sevoflurane (Ultane) 60 ml STK-MED ONCE IH ; Start 01/27/18 at 17:16; Stop 01/27 at 17:17; Status DC Simvastatin (Zocor) 5 mg HS PO ; Start 01/27/18 at 21:00 Sodium Chloride 1,000 ml @ 125 mls/hr 1X ONCE IV Last administered on at 14:08; Start 01/27/18 at 12:45; Stop 01/27/18 at 20:44 Tamsulosin HCl (Flomax) 0.4 mg QHS PO ; Start 01/27/18 at 21:00 Allergies Allergies: Coded Allergies: Penicillins (Verified Allergy, Intermediate, Rash, 08/25/14) ROS Review Of Systems: Pertinent positives and negatives were reviewed and included in the HPI. Physical Exam Physical Exam: General: Pleasant, no acute distress, well groomed Eyes: conjunctiva anicteric, eyes full range of motion ENT: moist oral mucosa Neck: Trachea midline Respiratory: unlabored breathing, not using accessory muscles Cardiovascular: Regular rate pulse Abdomen: nontender, nondistended Skin: no rashes or skin lesions on visualized skin Psych: normal mood, affect. Alert and oriented x 3. Vitals VITALS Vital Signs Date Time Temp Pulse Resp B/P (MAP) Pulse Ox O2 Delivery O2 Flow Rate FiO2 01/27/18 15:41 101.7 89 16 129/46 (73) 93 Room Air 101.7 Labs Labs Per HPI Images Images CT stone images were reviewed Assessment/Plan Assessment/Plan 68 yo female with urosepsis and obstructing 5 mm distal right ureteral stones. Counselled regarding options including decompression of her urinary tract with cystoscopy, right retrograde pyelogram and ureteral stent placement. Reviewed the risks and benefits to the procedure. Consent was obtained. NPO until post-procedure Continue abx until culture finalize Will need definitive stone surgery in 2 weeks RENNY MCCORD MD Jan 27, 2018 17:34
[2018-01-27] MEDS ORDERED: PHENYLEPHRINE in 0.9% NACL PF 1 MG/10 ML SYRINGE. IV ONE (17:35)
--- NOTE | 2018-01-27 18:11 | PDOC ---
BRIEF OPERATIVE NOTE Date: Jan 27, 2018 Pre-Op Diagnosis right ureteral stone, urosepsis Post-Op Diagnosis same Procedure Performed cystoscopy, right 6x26 JJ stent w/o string Surgeon Herre Tool Drawing Checker None Anesthesia Type: General Blood Loss <5 cc Findings As dictated Complications None Operative Note Dictation# [id number] RENNY MCCORD MD Jan 27, 2018 18:11
--- NOTE | 2018-01-27 19:59 | OP ---
DATE OF SURGERY: 01/27/2018 PREOPERATIVE DIAGNOSES: 1. Obstructing distal right ureteral stone. 2. Urosepsis. POSTOPERATIVE DIAGNOSES: 1. Obstructing distal right ureteral stone. 2. Urosepsis. PROCEDURES PERFORMED: 1. Cystourethroscopy. 2. Right 6-Citizen Of [place] x 26-cm double-J ureteral stent placement without string. ANESTHESIA: General. COMPLICATIONS: None. ESTIMATED BLOOD LOSS: None. INDICATIONS FOR PROCEDURE: The patient is a 68-year-old female who presented with renal colic yesterday and was admitted for observation. She ultimately progressed to urosepsis and presents for the above-mentioned procedures. DESCRIPTION OF PROCEDURE: The patient was met in the preoperative holding area where her procedure, risks, benefits and alternatives were reviewed in detail. Informed consent was obtained and she was brought back to the Operating Room and placed supine on the operating table. A timeout was called, identifying the correct patient, procedure, preoperative antibiotics and right-sided laterality. All members of the surgical team were in agreement. General anesthesia was induced and she was repositioned into dorsal lithotomy and prepped and draped in sterile fashion. A 21-Citizen Of [place] rigid cystoscope was placed atraumatically through urethra into her bladder. She had a small cystocele. Her bladder was hyperemic. There were no mucosal lesions or stones; however, there was some debris. Using a sensor wire, her right ureteral orifice was cannulated. This was advanced up to the renal pelvis under fluoroscopic guidance. Over the wire, a 6-Citizen Of [place] x 26-cm double-J ureteral stent was placed. Good proximal positioning was noted within the renal pelvis under fluoroscopy. The distal curl was nicely seen within the bladder. There was a strong efflux of cloudy-appearing urine. During the process of placing the stent we could, we likely palpated the stone a few centimeters from the ureteral orifice. The bladder was reinspected. No trauma was noted. The bladder was emptied and the scope was removed under direct vision. The patient was awoken and transferred to PACU in stable condition. She will be returned to the floor for antibiotics with plans for definitive stone management in approximately 2 weeks. RENNY MCCORD MD DR: PORSCHE/wm JOB#: [id number] / [id number]
[2018-01-27] MEDS: CARVEDILOL 12.5 MG TABLET. PO SCH (21:34)
[2018-01-27] MEDS: TAMSULOSIN 0.4 MG CAP.ER.24H. PO SCH (21:34)
[2018-01-27] MEDS: SIMVASTATIN 5 MG TABLET. PO SCH (21:35)
[2018-01-28 03:45] VITALS: BP 120/52
[2018-01-28] MEDS: MEROPENEM 500 MG in IV NORMAL SALINE 50ML 50 ML IV SCH ×3 (05:55→21:04)
[2018-01-28] MEDS ORDERED: ONDANSETRON PF 4 MG/2 ML VIAL. IV PRN (06:00)
[2018-01-28] MEDS: PANTOPRAZOLE 40 MG TABLET.DR. PO SCH (06:20)
[2018-01-28 07:01] LABS: BASO % 0 % (0-3); EOS % 0 % (0-3); HEMATOCRIT 29.8 % (36.0-47.0); HEMOGLOBIN 10.2 g/dL (12.0-15.5); LYMPH # 0.6 x10^3/uL (1.0-4.8); LYMPH % 6 % (24-48); MEAN CORPUSCULAR HEMOGLOBIN 32 pg (25-35); MEAN CORPUSCULAR HGB CONC 34 g/dL (31-37); MEAN CORPUSCULAR VOLUME 93 fL (79-100); MONO # 0.2 x10^3/uL (0.0-1.1); MONO % 2 % (0-9); NEUT # 10.7 x10^3uL (1.8-7.7); NEUT % 93 % (31-73); PLATELET COUNT 202 x10^3/uL (140-400); RED BLOOD COUNT 3.22 x10^6/uL (3.50-5.40); RED CELL DISTRIBUTION WIDTH 12.8 % (11.5-14.5); WHITE BLOOD COUNT 11.5 x10^3/uL (4.0-11.0)
[2018-01-28 07:23] LABS: ALBUMIN 2.5 g/dL (3.4-5.0); ALBUMIN/GLOBULIN RATIO 0.8 (1.0-1.7); CALCIUM 8.4 mg/dL (8.5-10.1); CREATININE 1.1 mg/dL (0.6-1.0); GFR 49.1; POTASSIUM 4.2 mmol/L (3.5-5.1); TOTAL BILIRUBIN 0.2 mg/dL (0.2-1.0); TOTAL PROTEIN 5.7 g/dL (6.4-8.2)
[2018-01-28] MEDS: CARVEDILOL 12.5 MG TABLET. PO SCH ×2 (07:49→17:07)
[2018-01-28 07:57] VITALS: BP 120/63
--- NOTE | 2018-01-28 09:34 | PDOC ---
SUBJECTIVE Subjective Patient doing well this morning. Pain well controlled, no nausea. She ate her whole breakfast. Also denies dysuria but has red tinged urine OBJECTIVE Objective Physical Exam: General appearance: Alert and Oriented Head: Normocephalic, without obvious abnormality Eyes: conjunctivae/corneas clear. PERRL, EOM's intact. Fundi benign Back: negative, no CVA pain bilaterally Lungs: Non labored breathing, regular respirations. Abdomen: soft, non-tender with palpation Vital Signs Vital Signs Date Time Temp Pulse Resp B/P (MAP) Pulse Ox O2 Delivery O2 Flow Rate FiO2 01/28/18 07:57 98.1 77 16 120/63 (82) 94 Room Air 98.1 01/28/18 07:49 77 120/63 01/28/18 03:45 98.1 82 20 120/52 (74) 97 Room Air 98.1 01/27/18 23:15 98.5 81 18 104/44 (64) 93 Room Air 98.5 01/27/18 22:15 98.5 86 18 119/45 (69) 90 Room Air 98.5 01/27/18 21:34 91 119/45 01/27/18 21:15 98.4 86 18 126/53 (77) 91 Room Air 98.4 01/27/18 20:45 98.4 97 18 128/54 (78) 91 Room Air 98.4 01/27/18 20:15 98.0 96 18 149/66 (93) 92 Room Air 98.0 01/27/18 20:00 98.0 94 18 156/70 (98) 93 Room Air 98.0 01/27/18 20:00 Room Air 01/27/18 19:56 97.9 96 18 156/70 (98) 94 Room Air 97.9 01/27/18 19:45 98.4 92 18 128/81 (97) 92 Room Air 98.4 01/27/18 19:30 98.2 94 18 156/70 (98) 93 Room Air 98.2 01/27/18 18:27 98.9 95 21 145/58 99 Nasal Cannula 2 98.9 01/27/18 18:15 Nasal Cannula 2 01/27/18 18:12 98.9 95 20 131/64 97 Nasal Cannula 2 98.9 01/27/18 15:41 101.7 89 16 129/46 (73) 93 Room Air 101.7 01/27/18 11:50 100.4 99 16 146/66 (92) 95 Room Air 100.4 I & O Intake and Output 01/28/18 07:00 Intake Total 1600 ml Output Total 400 ml Balance 1200 ml Intake Oral 200 ml IV Total 1400 ml Output Urine Total 400 ml # Voids 4 # Bowel Movements 1 PHYSICAL EXAM Physical Exam Physical Exam: General appearance: Alert and Oriented Head: Normocephalic, without obvious abnormality Eyes: conjunctivae/corneas clear. PERRL, EOM's intact. Fundi benign Back: negative, no CVA pain bilaterally Lungs: Non labored breathing, regular respirations. Abdomen: soft, non-tender with palpation ASSESSMENT/PLAN Assessment/Plan Pt is POD # [address] [place] [facility] Doing well. WBC still elevated at 11.5. Other numbers good with EDITORIAL INTERN 1.1, BUN 17 and afebrile. Pain well controlled Dr. Alcocer is keeping patient one mroe night in house and D/C IVF since she is eating and drinking well. OK with Urology. Pt given copy of op report and it was explained to patient that she will receive a FU phone call from Demetra Grijalva of [facility], dental scheduler. Pt verbalizes understanding, all questions answered. Will follow while in house. COMMENT Lab Laboratory Tests Test 01/27/18 14:06 01/28/18 06:45 Sodium Level 140 mmol/L (136-145) 144 mmol/L (136-145) Potassium Level 4.4 mmol/L (3.5-5.1) 4.2 mmol/L (3.5-5.1) Chloride Level 104 mmol/L (98-107) 111 mmol/L (98-107) Carbon Dioxide Level 26 mmol/L (21-32) 22 mmol/L (21-32) Anion Gap 10 (6-14) 11 (6-14) Blood Urea Nitrogen 22 mg/dL (7-20) 17 mg/dL (7-20) Creatinine 1.8 mg/dL (0.6-1.0) 1.1 mg/dL (0.6-1.0) Estimated GFR (Cockcroft-Gault) 27.8 49.1 Glucose Level 136 mg/dL (70-99) 149 mg/dL (70-99) Calcium Level 8.6 mg/dL (8.5-10.1) 8.4 mg/dL (8.5-10.1) White Blood Count 11.5 x10^3/uL (4.0-11.0) Red Blood Count 3.22 x10^6/uL (3.50-5.40) Hemoglobin 10.2 g/dL (12.0-15.5) Hematocrit 29.8 % (36.0-47.0) Mean Corpuscular Volume 93 fL (79-100) Mean Corpuscular Hemoglobin 32 pg (25-35) Mean Corpuscular Hemoglobin Concent 34 g/dL (31-37) Red Cell Distribution Width 12.8 % (11.5-14.5) Platelet Count 202 x10^3/uL (140-400) Neutrophils (%) (Auto) 93 % (31-73) Lymphocytes (%) (Auto) 6 % (24-48) Monocytes (%) (Auto) 2 % (0-9) Eosinophils (%) (Auto) 0 % (0-3) Basophils (%) (Auto) 0 % (0-3) Neutrophils # (Auto) 10.7 x10^3uL (1.8-7.7) Lymphocytes # (Auto) 0.6 x10^3/uL (1.0-4.8) Monocytes # (Auto) 0.2 x10^3/uL (0.0-1.1) Eosinophils # (Auto) 0.0 x10^3/uL (0.0-0.7) Basophils # (Auto) 0.0 x10^3/uL (0.0-0.2) BUN/Creatinine Ratio 15 (6-20) Total Bilirubin 0.2 mg/dL (0.2-1.0) Aspartate Amino Transf (AST/SGOT) 32 U/L (15-37) Alanine Aminotransferase (ALT/SGPT) 62 U/L (14-59) Alkaline Phosphatase 51 U/L (46-116) Total Protein 5.7 g/dL (6.4-8.2) Albumin 2.5 g/dL (3.4-5.0) Albumin/Globulin Ratio 0.8 (1.0-1.7) NARENDRA,NEYDA Pantoja APRN Jan 28, 2018 09:33
--- NOTE | 2018-01-28 09:43 | HP ---
ADMIT DATE: 01/28/2018 HISTORY OF PRESENT ILLNESS: The patient is a 68-year-old female patient who was admitted to [facility] with right loin pain radiating down to the right groin, started about 4 hours prior to her arrival to the Emergency Room. She was investigated there and a CT scan of the abdomen without contrast showed that she has a distal right ureteral stone with moderate hydronephrosis. She was admitted for control for pain management, started on IV fluid, IV pain medication and antiemetic hoping that the patient will pass the stone spontaneously. Unfortunately, the patient continued to have severe pain. Her white cell count went up to 17,700. Her kidney function has worsened with the creatinine has risen from 1.2 to 1.6. We did repeat another CT scan of the abdomen without contrast, which showed that she continued to have a 4 mm calculus at the right ureterovesical junction with right hydronephrosis, and therefore a decision was made to admit her to [facility] to continue with IV antibiotic, IV fluid and to consult the Urology team. PAST MEDICAL HISTORY: Significant for hypertension, hyperlipidemia, chronic back pain. PAST SURGICAL HISTORY: Significant for total hip replacement. No other pertinent history. FAMILY HISTORY: Unremarkable. SOCIAL HISTORY: She is , does not smoke, drink alcohol or use recreational drugs. REVIEW OF SYSTEMS: As per history of present illness. She apparently was seen by the urologist and she was taken to the OR and underwent cystourethroscopy and right 6-[place] x 26-cm double-J ureteral stent placement without string was done successfully. When I saw her today, she looked well and was clearly in no apparent respiratory distress. On questioning her, she denied any complaint. The nursing staff did not voice any concerns and she had an uneventful night. PHYSICAL EXAMINATION: GENERAL: When I examined her, she looked well and was slightly pale, but no jaundice, cyanosis, or thyromegaly. No jugular venous distension. No lower limb edema. VITAL SIGNS: Her heart rate was 77, blood pressure 120/63, temperature was 98.1, respiratory rate was 16 and oxygen saturation was 94% on room air. HEAD, EYES, EARS, NOSE AND THROAT: Showed normocephalic, atraumatic. NECK: Supple. HEART: Showed normal first and second heart sounds with no gallop, rub or murmur. CHEST: Clear to auscultation. No crepitation or rhonchi. ABDOMEN: Distended, soft, nontender. No guarding or rigidity. No organomegaly. All hernial orifices intact. Bowel sounds normal. NEUROLOGIC: She was awake, alert, responding appropriately. All cranial nerves intact. EXTREMITIES: She moves extremities without difficulty. She ambulates without assistance or assistive devices. INS AND OUTS: Her intake over the last 24 hours was 1600, output was 400. LABORATORY DATA: Showed a white cell count of 11,500, hemoglobin 10, hematocrit 30, MCV 93, and platelet count of 202,000 with normal manual differential. Her chemistry showed a serum sodium 144, potassium 4.2, chloride 111, bicarbonate 22, anion gap of 11, BUN 17, creatinine was 1.1, estimated GFR was 49 mL per minute. Her glucose 149, calcium was 8.4. Total bilirubin, AST, ALT, alkaline phosphatase were normal. Total protein was 5.7, albumin was 2.5. ASSESSMENT AND PLAN: Obstructing distal right ureteral stone with urosepsis, status post cystourethroscopy and stent deployment. Other medical problems include hypertension, osteoarthritis, hyperlipidemia, chronic back pain. My plan is to continue with IV meropenem for now, repeat her labs tomorrow and hopefully discharge her home to continue on oral antibiotic and to follow with Urology office for stone removal. ANNETTE VIDAL MD DR: LORIN/wm JOB#: [id number] / [id number]
[2018-01-28 11:25] VITALS: BP 132/65
[2018-01-28 12:23] LABS: % BANDS 4 % (0-9); % LYMPHS 4 % (24-48); % MONOS 2 % (0-10); % SEGS 90 % (35-66)
[2018-01-28 12:24] LABS: PLT ESTIMATE ADEQUATE (ADEQUATE)
[2018-01-28 15:43] VITALS: BP 126/59
[2018-01-28 19:00] VITALS: BP 144/64
[2018-01-28] MEDS: LACTOBACILLUS RHAMNOSUS GG 1 CAPSULE. PO SCH (21:03)
[2018-01-28] MEDS: SIMVASTATIN 5 MG TABLET. PO SCH (21:03)
[2018-01-28] MEDS: TAMSULOSIN 0.4 MG CAP.ER.24H. PO SCH (21:03)
[2018-01-28 23:00] VITALS: BP 124/48
[2018-01-29 03:00] VITALS: BP 128/55
[2018-01-29 04:05] LABS: CALCIUM 8.4 mg/dL (8.5-10.1); GFR 54.8; POTASSIUM 4.1 mmol/L (3.5-5.1)
[2018-01-29] MEDS: PANTOPRAZOLE 40 MG TABLET.DR. PO SCH (06:05)
[2018-01-29] MEDS: MEROPENEM 500 MG in IV NORMAL SALINE 50ML 50 ML IV SCH (06:05)
[2018-01-29 07:00] VITALS: BP 157/68
[2018-01-29] MEDS: CARVEDILOL 12.5 MG TABLET. PO SCH (08:11)
--- NOTE | 2018-01-29 08:36 | PDOC ---
SUBJECTIVE Subjective Pt resting comfortably, ready to go home. 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 OBJECTIVE Objective Physical Exam: General appearance: Alert and Oriented Head: Normocephalic, without obvious abnormality Eyes: conjunctivae/corneas clear. PERRL, EOM's intact. Fundi benign Back: negative, no CVA pain Lungs: regular respirations, non labored breathing Abdomen: soft, non-tender. Vital Signs Vital Signs Date Time Temp Pulse Resp B/P (MAP) Pulse Ox O2 Delivery O2 Flow Rate FiO2 01/29/18 08:11 68 157/68 01/29/18 03:00 97.9 66 18 128/55 (79) 95 Room Air 97.9 01/28/18 23:00 98.3 83 16 124/48 (73) 97 Room Air 98.3 01/28/18 20:00 Room Air 01/28/18 19:00 98.6 80 16 144/64 (90) 96 Room Air 98.6 01/28/18 17:07 83 126/59 01/28/18 15:43 98.4 83 16 126/59 (81) 96 Room Air 98.4 01/28/18 11:25 99.5 88 16 132/65 (87) 95 Room Air 99.5 01/28/18 09:28 77 120/63 I & O Intake and Output 01/29/18 07:00 Intake Total 220 ml Output Total 850 ml Balance -630 ml Intake Oral 120 ml IV Total 100 ml Output Urine Total 850 ml # Voids 4 # Bowel Movements 1 PHYSICAL EXAM Physical Exam Physical Exam: General appearance: Alert and Oriented Head: Normocephalic, without obvious abnormality Eyes: conjunctivae/corneas clear. PERRL, EOM's intact. Fundi benign Back: negative, no CVA pain Lungs: regular respirations, non labored breathing Abdomen: soft, non-tender. ASSESSMENT/PLAN Assessment/Plan Pt is POD # [address] Tineo. Pt doing well, ready for discharge home. Ok to return to work day after tomorrow if patient feeling well. OK to D/C home from a Urology perspective. Should go home on 7 days worth of antibiotics when she does go home along with medication. Discussed with Dr. Alcocer. Pt given copy of op report yesterday, and it was explained to patient that she will receive a FU phone call from Demetra Grijalva of [facility], behavioral health technician. She has Dr. Tineo's card should she not receive a phone call. Pt verbalizes understanding, all questions answered. Will sign off at this time, but please call with questions or change in patient condition. COMMENT Lab Laboratory Tests Test 01/29/18 03:10 Sodium Level 142 mmol/L (136-145) Potassium Level 4.1 mmol/L (3.5-5.1) Chloride Level 109 mmol/L (98-107) Carbon Dioxide Level 24 mmol/L (21-32) Anion Gap 9 (6-14) Blood Urea Nitrogen 20 mg/dL (7-20) Creatinine 1.0 mg/dL (0.6-1.0) Estimated GFR (Cockcroft-Gault) 54.8 Glucose Level 170 mg/dL (70-99) Calcium Level 8.4 mg/dL (8.5-10.1) NEYDA MACKEY APRN Jan 29, 2018 08:36
[2018-01-29] MEDS ORDERED: LEVO500T59 PO (08:41)
[2018-01-29] MEDS ORDERED: OXYC5CAP PO (08:56)
[2018-01-29] MEDS: LACTOBACILLUS RHAMNOSUS GG 1 CAPSULE. PO SCH (09:29)
[2018-01-29 11:00] VITALS: BP 160/67
--- NOTE | 2018-01-29 13:22 | DS ---
DATE OF DISCHARGE: 01/29/2018 HOSPITAL COURSE: The patient was sitting slightly propped up in bed, in no apparent distress. Awake, alert. On questioning her, denied any complaint, in particular denied any pain, no nausea, no vomiting, no chills, rigors or fever. She underwent cystourethroscopy and right 6-[place] x 26-cm double-J ureteral stent placement without string for an obstructing distal right ureteral stone and urosepsis. PHYSICAL EXAMINATION: GENERAL: When I saw her today, she looked well and was clearly in no apparent respiratory distress. No pallor, jaundice, cyanosis, or thyromegaly. No jugular venous distension. No lower limb edema. VITAL SIGNS: Her heart rate was 68, blood pressure was 157/68, temperature was 97.5, respiratory rate was 18 and oxygen saturation was 97% on room air. HEAD, EYES, EARS, NOSE AND THROAT: Normocephalic, atraumatic. NECK: Supple. HEART: Normal first and second sounds. No gallop, rub or murmur. CHEST: Clear to auscultation. No crepitation or rhonchi. ABDOMEN: Distended, soft, nontender. NEUROLOGIC: She is awake, alert, responding appropriately. All cranial nerves intact. She moves extremities without difficulty. She ambulates without assistance or assistive devices. LABORATORY DATA: As of this morning showed a serum sodium 142, potassium 4.1, chloride 109, bicarbonate 24, anion gap of 9, BUN 20, creatinine 1 and estimated GFR was 55 mL per minute. Her glucose 170, calcium was 8.4. White cell count was 11,500, hemoglobin 10, hematocrit 30, MCV 93, and platelet count 202,000. DISCHARGE MEDICATIONS: She was discharged home to continue on levofloxacin 500 mg once a day for 7 days, oxycodone 5 mg every 6 hours as needed, alendronate sodium for Fosamax 70 mg once a week, carvedilol 12.5 mg twice a day, diltiazem hydrochloride 180 mg once a day, lisinopril 10 mg once a day, meloxicam 15 mg once a day, Protonix 40 mg daily and simvastatin 5 mg at bedtime. FINAL DISCHARGE DIAGNOSES: 1. Obstructing distal right ureteral stone with urosepsis. She is status post cystourethroscopy and stent deployment. 2. Other medical problems include: A. Hypertension. B. Hyperlipidemia. C. Osteoarthritis. D. Chronic back pain. DISCHARGE INSTRUCTIONS: The patient should follow with her urologist as she will require another surgery for removal of the stent. ANNETTE VIDAL MD DR: Jone JOB#: [id number] / [id number]
[2018-02-03] MEDS ORDERED: NON FORMULARY ITEM (Alendronate Sodium (Fosamax) 70 MG) PO SCH (09:00)
== END 2018-01-29 11:00 | disposition home or self-care (01) | DRG 853 ==
LOC: 4 NORTH 11:50
PROVIDERS: ADMIT Internal Medicine; ATTEND Internal Medicine
PROC: 0T768DZ Dilation of Right Ureter with Intraluminal Device, Via Natural or Artificial Opening Endoscopic (ICD-10-PCS; principal; 2018-01-27 17:30)
DX: A41.9 Sepsis, unspecified organism (principal); E43 Unspecified severe protein-calorie malnutrition; N13.2 Hydronephrosis with renal and ureteral calculous obstruction; I10 Essential (primary) hypertension; D72.829 Elevated white blood cell count, unspecified; E78.5 Hyperlipidemia, unspecified; G89.29 Other chronic pain; K21.9 Gastro-esophageal reflux disease without esophagitis; M19.90 Unspecified osteoarthritis, unspecified site; M81.0 Age-related osteoporosis without current pathological fracture; N81.10 Cystocele, unspecified; Z96.649 Presence of unspecified artificial hip joint; Z82.49 Family history of ischemic heart disease and other diseases of the circulatory system; Z83.3 Family history of diabetes mellitus; Z79.899 Other long term (current) drug therapy; Z88.0 Allergy status to penicillin
CPT/HCPCS: 36415; 76001; 80048; 80053; 85007; 85025; 87493; C1769; C2617; J1100; J2001; J2185; J2370; J2405; J2704; J3010; J7030; J7120; Q9967

== ENCOUNTER → 2018-02-11 | Outpatient (CLI) | payer OTHER ==
[2018-01-29 11:00] VITALS: BP 160/67
[~2018-02-11] MED LIST changes: +LEVO500T59 PO; +OXYC5CAP PO
--- NOTE | 2018-02-11 17:07 | RAD ---
PQRS Compliance statement: One or more of the following individualized dose reduction techniques were utilized for this examination: 1. Automated exposure control. 2. Adjustment of the mA and/or kV according to patient size. 3. Use of iterative reconstruction technique. Indication:CALCULUS OF RIGHT URETER X 2 WEEKS. TECHNIQUE: CT abdomen and pelvis without IV contrast with multiplanar reformats. COMPARISON: None FINDINGS: Limited evaluation of solid abdominal and pelvic organs due to lack of IV contrast. Heart is normal in size. No pericardial or pleural effusion. Clear lung bases. Noncontrast appearance of the liver, spleen, gallbladder, pancreas, adrenals within normal limits. Right-sided nephroureteral stent is seen. Punctate nonobstructing left renal stone. No enlarged retroperitoneal adenopathy. Enlarged right pelvic sidewall lymph node is seen measuring 1.6 x 1.0 cm. Enlarged left lower quadrant lymph nodes measuring 1.6 x 1.0 cm. No bowel obstruction. Appendix is not confidently seen. No right lower quadrant inflammatory changes. Status post hysterectomy. Urinary bladder demonstrates no radiopaque stones. Grade 1 anterolisthesis of L3 relative to L2. No suspicious bony lesion. IMPRESSION: Limited evaluation of solid abdominal and pelvic organs due to lack of IV contrast. 1. Punctate nonobstructing left renal stone. Right-sided nephroureteral stent without right-sided nephrolithiasis. 2. Mildly enlarged bilateral pelvic lymph nodes, nonspecific most likely reactive. Electronically signed by: Taye Saunders DO (02/11/2018 5:04 PM) [facility]
== END | disposition home or self-care (01) ==
LOC: CT 11:08
PROVIDERS: ATTEND Urology
DX: N20.0 Calculus of kidney (principal); R59.9 Enlarged lymph nodes, unspecified; N20.1 Calculus of ureter; Z90.710 Acquired absence of both cervix and uterus
CPT/HCPCS: 74176

== ENCOUNTER 2018-03-12 12:03 | Day surgery (SDC) | payer OTHER ==
[~2018-03-12] VITALS: Ht 162.6 cm; Wt 65.8 kg
[~2018-03-12 12:03] MED LIST changes: +ATOR40TA59 PO; +CARV12.511 PO; -CARV12.52 PO; +CRESTOR40 MG PO; +HYDROmorphone 2 MG/ML VIAL IV PRN; +IOHEXOL 300 MG/ML 100ML VIAL. ONE; +IV RINGERS,LACTATED 1000ML 1,000 ML IV SCH; +LIDOCAINE 1% PF 2 ML VIAL. ID PRN; +LIDOCAINE 2% JELLY 6ML IN APPLICATOR. ONE; +MORPHINE SULFATE 2 MG/ML VIAL. IV PRN; +ONDANSETRON PF 4 MG/2 ML VIAL. IV PRN; +PROCHLORPERAZINE 10 MG/2 ML VIAL. IV PRN; +ceFAZolin 2GM PREMIX 2 GM/50 ML BAG IV ONE; +fentaNYL PF VIAL 100 MCG/2 ML VIAL IV PRN
[2018-03-12] MEDS ORDERED: DEXAMETHASONE SOD PHOS 20 MG/5 ML VIAL. ONE (13:07)
[2018-03-12] MEDS ORDERED: ONDANSETRON PF 4 MG/2 ML VIAL. ONE (13:07)
[2018-03-12] MEDS ORDERED: fentaNYL PF VIAL 100 MCG/2 ML VIAL ONE (13:07)
[2018-03-12] MEDS ORDERED: PROPOFOL 20 ML IV ONE (13:08)
[2018-03-12] MEDS ORDERED: LIDOCAINE 2% PF Vial for OR 5 ML VIAL. ONE (13:08)
[2018-03-12] MEDS ORDERED: PHENYLEPHRINE in 0.9% NACL PF 1 MG/10 ML SYRINGE. IV ONE (13:31)
[2018-03-12] MEDS ORDERED: SEVOFLURANE 31 TO 60 MINUTES. IH ONE (14:04)
[2018-03-12] MEDS ORDERED: KETOROLAC 30 MG/ML INJ FOR OR. INJ ONE (14:04)
--- NOTE | 2018-03-12 14:09 | PDOC ---
BRIEF OPERATIVE NOTE Pre-Op Diagnosis right ureteral stone Post-Op Diagnosis same Procedure Performed cysto, right retrograde, ureteroscopy, stone basketing Surgeon Hersol Hydraulics Engineer None Anesthesia Type: General Blood Loss < 5 cc Specimens Obtained ureteral stone Findings dictated Complications none Operative Note Dictation #[id number] RENNY MCCORD MD Mar 12, 2018 14:09
--- NOTE | 2018-03-12 14:12 | DISCH ---
DISCHARGE INSTRUCTIONS Condition on Discharge Condition on Discharge: Stable Activity After Discharge Activity Instructions for Disc: No restrictions, Activity as tolerated Driving Instructions after Dis: Other, see below (Do not drive today and if taking narcotic pain medictions.) Diet after Discharge Diet after Discharge: Regular Contacting the DRVandana after DC Call your doctor for: fevers, uncontrolled pain, bleeding, trouble urinating Follow-Up Follow up with: With Dr. Mccord in 3 weeks RENNY MCCORD MD Mar 12, 2018 14:12
--- NOTE | 2018-03-12 14:29 | OP ---
DATE OF SURGERY: 03/12/2018 PREOPERATIVE DIAGNOSIS: Right ureteral stone. POSTOPERATIVE DIAGNOSIS: Right ureteral stone. PROCEDURE PERFORMED: 1. Cystourethroscopy. 2. Right retrograde pyelogram. 3. Right ureteroscopy. 4. Stone basketing. ANESTHESIA: General. COMPLICATIONS: None. ESTIMATED BLOOD LOSS: Less than 5 mL. INDICATIONS: The patient is a 68-year-old female who recently presented with renal colic and sepsis secondary to an obstructing distal right ureteral stone. She underwent ureteral stent placement at that time. She presents today for the above-mentioned procedures. DESCRIPTION OF PROCEDURE: The patient was met in the preoperative holding area. Her procedure, risks, benefits, alternatives were reviewed in detail. Informed consent was obtained and she was brought back to the operating room and placed supine on the operating table. A timeout was called, identifying the correct patient, procedure, preoperative antibiotics and right-sided laterality. All members of surgical team were in agreement. General anesthesia was induced and she was repositioned into dorsal lithotomy and prepped and draped in a sterile fashion. A 21-Turkish rigid cystoscope was placed atraumatically through urethra into her bladder. No abnormalities were noted within the bladder on cystoscopy. The stent in question was grasped and externalized to her urethral meatus after emptying her bladder. A sensor wire was fed up through the stent to the renal pelvis under fluoroscopic guidance. Alongside the wire, a semirigid ureteroscope was placed in the distal ureter where the stone in question was identified and removed in its entirety with the stone basket. It was sent to pathology labeled right ureteral stone. We then performed ureteroscopy to the proximal ureter, which we noted to be dilated and there were no residual stones or trauma to the ureter on looking the scope out. A retrograde pyelogram was shot and did not identify any filling defects. There was prompt drainage of the renal collecting system. The bladder was reinspected. No trauma was noted. We decided to not leave a ureteral stent, so the bladder was emptied and scope was removed under direct vision. The patient was awoken and transferred to PACU in stable condition having tolerated the procedure well and will follow up in approximately 3 weeks to review her stone analysis and to discuss stone prevention. RENNY MCCORD MD DR: PORSCHE/wm JOB#: [id number] / [id number]
[2018-03-12 15:15] VITALS: BP 161/69
--- NOTE | 2018-03-13 15:09 | PATHOLOGY ---
[facility] Accession Number: [id number] . 01 Material submitted: . RIGHT KIDNEY STONE . 01 Clinical history: . Right renal calculi . 02 Diagnosis: Right kidney stone: - Consistent with calculus. - The specimen is forwarded to an outside laboratory for stone analysis with results to follow in an addendum. [facility] [place]/03/13/2018 . 02 Electronically signed: . Luis Alberto Saunders MD, Pathologist NPI- [id number] . 01 Gross description: . The specimen is received fresh, labeled "Azalea Torres, right kidney stone". Received is a single light nash calculus measuring 0.3 cm in maximum dimensions. The specimen is forwarded to sendouts for further processing. ([facility]; 03/13/2018) QAC/QAC . 02 Pathologist provided ICD-10: N20.0 . 02 CPT . 453138 Specimen Comment: A courtesy copy of this report has been sent to Specimen Comment: [phone]. Specimen Comment: Report sent to Specimen Comment: A duplicate report has been generated due to demographic updates. Performed at: 01 [facility] [address] [facility] [address], [place] [id number] MD Buck Correia MD Phone: [phone] Performed at: 02 [facility] [address] [place], [place] [id number] MD Luis Alberto Saunders MD Phone: [phone]
== END 2018-03-12 15:22 | disposition home or self-care (01) ==
LOC: SURG 12:03
PROVIDERS: ATTEND Urology
DX: N20.1 Calculus of ureter (principal)
CPT/HCPCS: 52352; 74420; A7015; C1769; J0690; J1100; J1885; J2001; J2370; J2405; J2704; J3010; Q9967; 88300

== ENCOUNTER → 2018-12-20 | Outpatient (CLI) | payer OTHER ==
[~2018-12-20] MED LIST changes: +ASPI-612 PO; +CYCL10TA2 PO; -HYDROmorphone 2 MG/ML VIAL IV PRN; -IOHEXOL 300 MG/ML 100ML VIAL. ONE; -IV RINGERS,LACTATED 1000ML 1,000 ML IV SCH; -LIDOCAINE 1% PF 2 ML VIAL. ID PRN; -LIDOCAINE 2% JELLY 6ML IN APPLICATOR. ONE; -MORPHINE SULFATE 2 MG/ML VIAL. IV PRN; -ONDANSETRON PF 4 MG/2 ML VIAL. IV PRN; -PANT40TA5 PO; +PANT40TA77 PO; +PRAS10TA9 PO; -PROCHLORPERAZINE 10 MG/2 ML VIAL. IV PRN; +SIMV5TAB14 PO; -SIMV5TAB5 PO; -ceFAZolin 2GM PREMIX 2 GM/50 ML BAG IV ONE; -fentaNYL PF VIAL 100 MCG/2 ML VIAL IV PRN; +magnesium PO
--- NOTE | 2018-12-20 13:54 | CARD ---
MR#: [id number] Date of Study: 12/20/2018 Ordering Physician: MARTHA WANG, Referring Physician: MARTHA WANG, Tech: La Thrasher APPROVED REPORT EXAM: Two-dimensional and M-mode echocardiogram with Doppler and color Doppler. Other Information Quality : GoodHR: 68bpm INDICATION Arrhythmia RISK FACTORS Hypertension Hyperlipidemia 2D DIMENSIONS RVDd2.1 (2.9-3.5cm)Left Atrium(2D)3.1 (1.6-4.0cm) IVSd1.0 (0.7-1.1cm)Aortic Root(2D)2.3 (2.0-3.7cm) LVDd4.7 (3.9-5.9cm)LVOT Diameter1.9 (1.8-2.4cm) PWd1.2 (0.7-1.1cm)LVDs2.6 (2.5-4.0cm) FS (%) 44.0 %SV75.5 ml LVEF(%)75.3 (>50%) Aortic Valve AoV Peak Jonnie.125.5cm/sAoV VTI24.4cm AO Peak GR.6.3mmHgLVOT Peak Jonnie.92.4cm/s LVOT VTI 19.95cmAO Mean GR.3mmHg RENETTA (VMAX)1.01sj6EPK (VTI)2.43cm2 Mitral Valve MV E Lndwplab65.2cm/sMV DECEL NKEW651zu MV A Aokdpptc01.8cm/sMV KYJ62sq E/A Ratio1.0MVA (PHT)3.61cm2 TDI E/Lateral E'11.7E/Medial E'12.0 Tricuspid Valve TR P. Kmozyesq357yx/sRAP CWYHTELU5czKn TR Peak Gr.26biUaBKJT60fkDo Pulmonary Vein S1 Mjownbqn30.4cm/sD2 Fkuaznuq45.6cm/s PVa [id number] LEFT VENTRICLE The left ventricle is normal size. There is mild to moderate concentric left ventricular hypertrophy. The systolic function is moderately impaired. EF 40% The distal half of the LV is severely hypokinet ic. Transmitral Doppler flow pattern is Grade II-pseudonormal filling dynamics. RIGHT VENTRICLE The right ventricle is normal size. There is normal right ventricular wall thickness. The right ventr icular systolic function is normal. ATRIA The left atrium size is normal. The right atrium size is normal. The interatrial septum is intact wit h no evidence for an atrial septal defect or patent foramen ovale as noted on 2-D or Doppler imaging. AORTIC VALVE The aortic valve is thickened but opens well. Doppler and Color Flow revealed no significant aortic r egurgitation. There is no significant aortic valvular stenosis. MITRAL VALVE The mitral valve is normal in structure and function. There is no evidence of mitral valve prolapse. There is no mitral valve stenosis. Doppler and Color-flow revealed trace mitral regurgitation. TRICUSPID VALVE The tricuspid valve is normal in structure and function. Doppler and Color Flow revealed trace tricus pid regurgitation with an estimated PAP of 36 mmHg. There is mild pulmonary hypertension. There is no tricuspid valve stenosis. PULMONIC VALVE The pulmonic valve is not well visualized. Doppler and Color Flow revealed no pulmonic valvular regur gitation. There is no pulmonic valvular stenosis. GREAT VESSELS The aortic root is normal in size. The IVC is normal in size and collapses >50% with inspiration. PERICARDIAL EFFUSION There is no evidence of significant pericardial effusion. Critical Notification Critical Value: No <Conclusion> The systolic function is moderately impaired. EF 40% The distal half of the LV is severely hypokinetic. Cannot rule out stress induced CMP. Signed by : Martha Wang, Electronically Approved : 12/20/2018 12:58:37
== END | disposition home or self-care (01) ==
LOC: ECHO 10:37
PROVIDERS: ATTEND Internal Medicine Cardiovascular Disease
DX: R07.89 Other chest pain (principal); E78.5 Hyperlipidemia, unspecified; I27.20 Pulmonary hypertension, unspecified; R94.31 Abnormal electrocardiogram [ECG] [EKG]
CPT/HCPCS: 93306

== ENCOUNTER 2018-12-24 08:12 | Inpatient (IN) | payer OTHER ==
[~2018-12-24] VITALS: Ht 162.6 cm; Wt 64.7 kg
[~2018-12-24 08:12] MED LIST changes: -ASPI-612 PO; -CYCL10TA2 PO; +HEPARIN for ARTERIAL LINE 1,500 ML ONE; +IODIXANOL 320 MG/ML 100 ML VIAL. ONE; +LIDOCAINE 1% PF 2 ML VIAL. ONE; -PRAS10TA9 PO; -magnesium PO
[2018-12-24 08:33] LABS: HEMATOCRIT 38.8 % (36.0-47.0); HEMOGLOBIN 13.2 g/dL (12.0-15.5); RED BLOOD COUNT 4.28 x10^6/uL (3.50-5.40); RED CELL DISTRIBUTION WIDTH 12.7 % (11.5-14.5); WHITE BLOOD COUNT 5.6 x10^3/uL (4.0-11.0)
[2018-12-24] MEDS ORDERED: CYCL10TA2 PO (08:34)
[2018-12-24] MEDS ORDERED: magnesium PO (08:34)
[2018-12-24 08:43] VITALS: BP 140/69
[2018-12-24 08:44] LABS: PROTHROMBIN TIME PATIENT 13.2 SEC (11.7-14.0)
[2018-12-24 08:57] LABS: CALCIUM 9.5 mg/dL (8.5-10.1); GFR 54.8; POTASSIUM 4.3 mmol/L (3.5-5.1)
[2018-12-24] MEDS ORDERED: VERAPAMIL 5 MG/2 ML VIAL. ONE (09:01)
[2018-12-24] MEDS ORDERED: fentaNYL PF VIAL 100 MCG/2 ML VIAL ONE (09:01)
[2018-12-24] MEDS ORDERED: NITROGLYCERIN 200 MCG/2 ML SYRINGE FOR CATH/VASC LAB. ONE ×2 (09:01→09:49)
[2018-12-24] MEDS ORDERED: MIDAZOLAM HCL/PF 5 MG/5 ML VIAL. ONE (09:01)
[2018-12-24] MEDS ORDERED: HEPARIN for IV BOLUS 10,000 UNIT/10 ML VIAL. ONE (09:01)
[2018-12-24] MEDS ORDERED: LIDOCAINE 1% PF 2 ML VIAL. INJ ONE (09:30)
[2018-12-24] MEDS ORDERED: fentaNYL PF VIAL 100 MCG/2 ML VIAL IV ONE (09:30)
[2018-12-24] MEDS ORDERED: NITROGLYCERIN 200 MCG/2 ML SYRINGE FOR CATH/VASC LAB. IART ONE (09:30)
[2018-12-24] MEDS ORDERED: IODIXANOL 320 MG/ML 100 ML VIAL. IART ONE (09:30)
[2018-12-24] MEDS ORDERED: HEPARIN for IV BOLUS 10,000 UNIT/10 ML VIAL. IART ONE (09:30)
[2018-12-24] MEDS ORDERED: MIDAZOLAM HCL/PF 5 MG/5 ML VIAL. IV ONE (09:30)
[2018-12-24] MEDS ORDERED: TIROFIBAN 12.5MG -0.9% NS 250 ML IV ONE (09:32)
[2018-12-24] MEDS ORDERED: HEPARIN for IV BOLUS 10,000 UNIT/10 ML VIAL. IV ONE (09:45)
[2018-12-24] MEDS ORDERED: TIROFIBAN 12.5MG -0.9% NS 250 ML IV PRN (09:45)
[2018-12-24] MEDS ORDERED: NITROGLYCERIN 200 MCG/2 ML SYRINGE FOR CATH/VASC LAB. ICAR ONE (09:45)
[2018-12-24] MEDS ORDERED: ASPIRIN 325 MG TABLET ONE (10:10)
[2018-12-24] MEDS ORDERED: PRASUGREL 10 MG TABLET. ONE (10:11)
[2018-12-24] MEDS ORDERED: ASPIRIN 325 MG TABLET PO ONE (10:15)
[2018-12-24] MEDS ORDERED: PRASUGREL 10 MG TABLET. PO ONE (10:15)
[2018-12-24 10:19] VITALS: BP 119/69
[2018-12-24 10:35] VITALS: BP 114/63
--- NOTE | 2018-12-24 10:59 | CARD ---
MR#: [id number] Date of Study: 12/24/2018 Ordering Physician: MARTHA BELLO, Referring Physician: MARTHA BELLO, Tech: RT Marie (R) APPROVED REPORT Technologist: RT Marie (R) Nurse: Celena Paulson R.N. Procedure(s) performed: Fluoro time: 11.5min Dose:[id number] Contrast: 111cc Moderate sedation: 74 MINS LHC, Coronary angiography PCI of the RCA PCI of the LAD, Ivus of the LAD HISTORY The patient is a 68 year-old female with a history of : coronary artery disease, hypertension, dyslip idemia. [facility] Clinical Frailty Scale [facility] Clinical Frailty Scale: Vulnerable Heart Failure Heart Failure: No PROCEDURE NARRATIVE INFORMED CONSENT: After explaining the risks and benefits of the procedure and alternatives, informed consent was obtained. The patient was brought electively to the cardiac catheterization lab. A timeout was performed confi rming the patient's name, date of , procedure, and site of procedure. All necessary personnel w ere wearing the appropriate protective equipment and radiation monitor devices. (See nursing notes for medications administered). ACCESS: The right wrist was sterilely prepped and draped in the usual fashion. The right wrist was infiltrat ed with 1 mL of 2% lidocaine for subcutaneous anesthesia. A 6 Kosovan Terumo glide sheath was inserte d into the right radial artery without difficulty. CORONARY ANGIOGRAPHY: Right and left coronary angiography was performed using a 6Fr TIG 4.0 catheter. Left ventricular en d diastolic pressure was obtained with a TIG catheter and pullback was performed after left ventricu lography. All catheter exchanges and advancements were performed over a guidewire. FINDINGS: HEMODYNAMICS: LVEDP 24 mm Hg No gradient on LV to aortic pullback. AO: 128/78 LEFT VENTRICULOGRAM: Deferred due to known EF of 40%. CORONARY ANGIOGRAPHY: LM is a large caliber vessel with normal angiographic appearance. LAD is a large caliber vessel with a proximal to mid 999% stenosis. D1 is a moderate caliber vessel with normal angiographic apeparance. LCx is a moderate caliber non-dominant vessel with normal angiographic appearance. OM1 is a moderate caliber vessel with normal angiographic appearance. RCA is a moderate caliber dominant vessel with a mid 80% stenosis. RPDA is a moderate caliber vessel with normal angiographic appearance. INTERVENTIONAL TECHNIQUE: PCI OF THE LAD AND IVUS OF THE LAD Based upon the present symptoms of unstable angina, elevated troponin and abnormal echocardiogram wit h critical LAD disease a intervention was planned. Heparin and tirofiban were used for anticoagulatio n. Through a 6 Kosovan EBU 3.5 guide catheter a pro-water wire was advanced to the distal LAD. The les ion was then angioplastied with a 3.0 x 12 mm balloon and stented with a 3.25 X 23 Alpine drug-elutin g stent. This was postdilated in the proximal two thirds with a 3.5 noncompliant balloon. The vessel was also evaluated with intravascular ultrasound prior to stenting and stent size of 3.25 mm was chos en based on the proximal and distal LAD size. Post-PCI angiography demonstrated excellent stent expan leonor with PRITI-3 flow in the vessel and no evidence of guide or wire related complications. INTERVENTIONAL TECHNIQUE: PCI OF THE RCA Attention was then turned to the RCA. Through a 6 Kosovan JR4 guide catheter a pro-water wire was then advanced to the distal RCA. The lesion was angioplastied with a 3.0 x 12 mm balloon and then stented with a 3.0X 23 Alpine drug-eluting stent. Post PCI angiography again demonstrated excellent stent ex pansion with PRITI-3 flow and no evidence of guide or wire related complications. CLOSURE: At case completion the right radial sheath was removed and a Terumo radial band was applied with 13 m l of air. COMPLICATIONS: The patient tolerated the procedure well and there were no immediate complications. PCI Technique Lesion Percutaneous coronary intervention was performed on the mid left anterior descending artery segment. PRITI Flow PRITI Flow (Pre-Intervention): PRITI-1 PRITI Flow (Post-Intervention): PRITI-3 PCI Technique Lesion 2 Percutaneous Coronary Intervention was performed on the mid right coronary artery. PRITI Flow PRITI Flow (Pre-Intervention): PRITI-3 PRITI Flow (Post-Intervention): PRITI-3 Conclusion 1. Acute on chronic systolic and diastolic heart failure. 2. Two-vessel coronary artery disease 3. Successful PCI of the LAD with implantation of a 3.25 x 28 mm Alpine drug-eluting stent, postdilat ed with a 3.5 mm noncompliant balloon 4. Successful PCI of the RCA with implantation of a 3.0 x 23 mm Alpine drug eluting stent, postdilate d with a 3.5 mm noncompliant balloon. Recommendations ASA 81mg daily Prasugrel 10mg daily High dose statin therapy Signed by : Martha Bello, Electronically Approved : 12/24/2018 10:59:07
--- NOTE | 2018-12-24 11:01 | NUR ---
The patient, SCOTT ALCALA, 68 y/o, F admitted by MARTHA BELLO MD, was given written information regarding hospital policies, unit procedures and contact persons. Valuables were checked.
[2018-12-24] MEDS ORDERED: VERAPAMIL 5 MG/2 ML VIAL. IART ONE (11:15)
[2018-12-24] MEDS ORDERED: ONDANSETRON PF 4 MG/2 ML VIAL. IVP PRN (11:30)
[2018-12-24 15:00] VITALS: BP 112/59
[2018-12-24] MEDS: CYCLOBENZAPRINE 10 MG TABLET. PO SCH (16:00)
[2018-12-24] MEDS: PANTOPRAZOLE 40 MG TABLET.DR. PO SCH (16:00)
[2018-12-24] MEDS: LISINOPRIL 20 MG TABLET PO SCH (16:00)
[2018-12-24] MEDS: MAGNESIUM OXIDE 400 MG TABLET PO SCH (16:00)
[2018-12-24] MEDS: CARVEDILOL 12.5 MG TABLET. PO SCH (17:00)
[2018-12-24 19:25] VITALS: BP 120/64
--- NOTE | 2018-12-24 20:16 | NUR ---
Pt in bed assessment completed vss poc explained pt denies pain at time of assessment. 2cc of air removed from tr band will monitor site and resume care.
[2018-12-24] MEDS ORDERED: ATORVASTATIN CALCIUM 40 MG TABLET. PO SCH (21:00)
[2018-12-24 23:13] VITALS: BP 96/54
[2018-12-25 03:00] VITALS: BP 106/61
[2018-12-25 04:46] LABS: CHOLESTEROL/HDL RATIO 4.1
[2018-12-25] MEDS: PANTOPRAZOLE 40 MG TABLET.DR. PO SCH (06:32)
[2018-12-25 07:29] VITALS: BP 126/67
[2018-12-25] MEDS ORDERED: ASPIRIN ENTERIC COATED 81 MG TABLET.DR. PO SCH (08:00)
[2018-12-25] MEDS ORDERED: PRASUGREL 10 MG TABLET. PO SCH (08:00)
[2018-12-25] MEDS: CARVEDILOL 12.5 MG TABLET. PO SCH (08:39)
[2018-12-25] MEDS: CYCLOBENZAPRINE 10 MG TABLET. PO SCH (08:40)
[2018-12-25] MEDS: LISINOPRIL 20 MG TABLET PO SCH (08:41)
[2018-12-25] MEDS: MAGNESIUM OXIDE 400 MG TABLET PO SCH (08:44)
[2018-12-25] MEDS ORDERED: MELOXICAM 7.5 MG TABLET PO SCH (09:00)
[2018-12-25] MEDS ORDERED: PRAS10TA9 PO (10:14)
[2018-12-25] MEDS ORDERED: ASPI-612 PO (10:14)
[2018-12-25] MEDS ORDERED: ATOR40TA59 PO (10:14)
--- NOTE | 2018-12-25 10:22 | PDOC3 ---
Discharge Summary Visit Information Date of Admission: Dec 24, 2018 Date of Discharge: Dec 25, 2018 Admitting Diagnosis Comment: Acute on chronic systolic and diastolic heart failure. Hypertension Hyperlipidemia Final Diagnosis CAD Acute on chronic systolic and diastolic heart failure. Hypertension Hyperlipidemia Brief Hospital Course Allergies Allergies Coded Allergies Type Severity Reaction Last Updated Verified Penicillins Allergy Intermediate Rash 03/12/18 Yes amlodipine Allergy Intermediate ANKLE SWELLING 03/12/18 Yes latex Allergy Intermediate REDNESS 03/12/18 Yes Vital Signs Vital Signs Date Time Temp Pulse Resp B/P (MAP) Pulse Ox O2 Delivery O2 Flow Rate FiO2 12/25/18 08:41 85 126/67 12/25/18 08:05 Room Air 12/25/18 07:29 98.2 18 97 98.2 12/24/18 10:27 2.0 Lab Results Laboratory Tests Test 12/24/18 08:28 12/24/18 09:55 12/25/18 03:35 White Blood Count 5.6 x10^3/uL (4.0-11.0) Red Blood Count 4.28 x10^6/uL (3.50-5.40) Hemoglobin 13.2 g/dL (12.0-15.5) Hematocrit 38.8 % (36.0-47.0) Mean Corpuscular Volume 91 fL (79-100) Mean Corpuscular Hemoglobin 31 pg (25-35) Mean Corpuscular Hemoglobin Concent 34 g/dL (31-37) Red Cell Distribution Width 12.7 % (11.5-14.5) Platelet Count 269 x10^3/uL (140-400) Prothrombin Time 13.2 SEC (11.7-14.0) Prothromb Time International Ratio 1.0 (0.8-1.1) Sodium Level 141 mmol/L (136-145) Potassium Level 4.3 mmol/L (3.5-5.1) Chloride Level 101 mmol/L (98-107) Carbon Dioxide Level 32 mmol/L (21-32) Anion Gap 8 (6-14) Blood Urea Nitrogen 20 mg/dL (7-20) Creatinine 1.0 mg/dL (0.6-1.0) Estimated GFR (Cockcroft-Gault) 54.8 Glucose Level 104 mg/dL (70-99) Calcium Level 9.5 mg/dL (8.5-10.1) Activated Clotting Time 195 sec (92-181) Triglycerides Level 109 mg/dL (0-150) Cholesterol Level 112 mg/dL (0-200) LDL Cholesterol, Calculated 63 mg/dL (0-100) VLDL Cholesterol, Calculated 22 mg/dL (0-40) Non-HDL Cholesterol Calculated 85 mg/dL (0-129) HDL Cholesterol 27 mg/dL (40-60) Cholesterol/HDL Ratio 4.1 Laboratory Tests Test 12/25/18 03:35 Triglycerides Level 109 mg/dL (0-150) Cholesterol Level 112 mg/dL (0-200) LDL Cholesterol, Calculated 63 mg/dL (0-100) VLDL Cholesterol, Calculated 22 mg/dL (0-40) Non-HDL Cholesterol Calculated 85 mg/dL (0-129) HDL Cholesterol 27 mg/dL (40-60) Cholesterol/HDL Ratio 4.1 Brief Hospital Course (1)Ms. Torres is a 68 old female who presented to our office with complaints of mixed chest pain that began after moving boxes and clean in her home. EKG at that time showed new anterolateral infarct pattern, which was a new finding in comparison to study completed the month prior at her PCP office. Echocardiogram showed moderately impaired LV function with an EF of 40% and hypokinesis of the distal half of the LV. Due to these findings and symptomatology, patient was scheduled for cardiac catheterization for further evaluation. Coronary angiogram notable for two-vessel CAD. Patient underwent successful PCI of the LAD with implantation of a 3.25 x 28 mm Alpine drug-eluting stent and successful PCI of the RCA with implantation of a 3.0 x 23 mm Alpine drug eluting stent. Patient tolerated procedure well. Was monitored overnight without acute complications. Right radial arteriotomy site soft, clean, and dry. No ecchymosis, erythema, or hematoma present. Bilateral neurovascular status intact. Lungs CTA. No edema. Discharge instructions reviewed and patient verbalized an understanding. Discharge Information Condition at Discharge: Improved Follow Up: Weeks (4) Disposition/Orders: D/C to Home Scheduled Aspirin (Aspirin Ec) 81 Mg Tablet., 81 MG PO DAILYWBKFT for Coronary Artery Disease for 30 Days, #30 Ref 2 Prescribed by: SERGIO GARCIA APRN on 12/25/18 1014 Atorvastatin Calcium (Atorvastatin Calcium) 40 Mg Tablet, 80 MG PO QHS for Coronary artery Disease for 30 Days, #60 Ref 2 Prescribed by: SERGIO GARCIA APRN on 12/25/18 1014 Carvedilol (Carvedilol ) 12.5 Mg Tablet, 1 TAB PO BID for CAD; HTN, #60 (Reported) Entered as Reported by: Michelle Fisher on 08/04/16356 Last Taken: Unknown Dose on 12/24/18 Last Action: Continued on 12/24/181507 by KADE ROMERO Cyclobenzaprine Hcl (Cyclobenzaprine Hcl) 10 Mg Tablet, 1 TAB PO DAILY for rx, #90 (Reported) Entered as Reported by: KEVIN DUNCAN on 12/24/18 0834 Last Action: Continued on 12/24/181507 by KADE ROMERO Lisinopril (Lisinopril) 10 Mg Tablet, 40 MG PO DAILY for HEART, (Reported) Entered as Reported by: DEXTER RODRIGUEZ on 04/09/13 0800 Last Action: Continued on 12/24/181507 by KADE ROMERO Pantoprazole Sodium (Pantoprazole Sodium ) 40 Mg Tablet.dr, 40 MG PO DAILY, #90 (Reported) Entered as Reported by: Michelle Fisher on 08/04/16357 Last Action: Continued on 12/24/181507 by KADE ROMERO Prasugrel Hcl (Effient) 10 Mg Tablet, 10 MG PO DAILYWBKFT for coronary artery disease for 30 Days, #30 Ref 2 Prescribed by: SERGIO GARCIA APRN on 12/25/18 1014 [magnesium ] , 250 MG PO DAILY, (Reported) Entered as Reported by: KEVIN DUNCAN on 12/24/1834 Last Action: Converted on 12/24/181507 by KADE ROMERO Miscellaneous Medications Diltiazem Hcl (Cartia Xt) 180 Mg Cap.er.24h, #30 (Reported) Entered as Reported by: MICHAEL NIELSEN on 08/04/16 1352 Last Action: Continued on 12/24/181507 by KADE ROMERO Discontinued Medications Atorvastatin Calcium (Atorvastatin Calcium) 40 Mg Tablet, 40 MG PO HS for FOR CHOLESTEROL, #30 Ref 0 (Reported) Entered as Reported by: MARLYS HAILE on 03/11/18 1358 Last Action: Discontinued on 12/24/1834 by KEVIN DUNCAN Meloxicam (Meloxicam) 15 Mg Tablet, 15 MG PO DAILY, (Reported) Entered as Reported by: DEXTER RODRIGUEZ on 04/09/13 0800 Last Taken: Unknown Dose on 12/24/18 Last Action: Converted on 12/24/18 1508 by KADE ROMERO Rosuvastatin Calcium (Crestor) 40 Mg Tablet, 40 MG PO HS for FOR CHOLESTEROL, #30 Ref 0 (Reported) Entered as Reported by: MARLYS HAILE on 03/11/18 1358 Last Action: Converted on 12/24/18 1508 by KADE ROMERO Patient Instructions Patient Instructions GENERAL INSTRUCTIONS: 1. Your dressing should be removed prior to leaving the hospital. 2. It is OK to shower the day after your procedure. 3. If you received stents, be sure to carry your stent information card with you in your wallet/purse at all times. 4. Call the office immediately at [phone] if you notice any fever or if there is redness, worsening tenderness/pain, increased bruising, or drainage from the puncture site. 5. Should you have bleeding from the site, lie down immediately & put pressure on the site. The pressure should be hard enough to stop the bleeding. Have the nearest person call 911. DO NOT try to drive to the ER with active bleeding. 6. If you notice a change in color, coolness to touch, or loss of feeling in the affected extremity, come to the emergency room. Please have someone drive you or call 911 if no one is available. DO NOT drive yourself. 7. If you normally take glucophage (metformin), please do not take this me dicine for 48 hours following your procedure. 8. DO NOT STOP TAKING YOUR PLAVIX OR ASPIRIN UNLESS IT IS CLEARED BY A DIAMOND DRILLER HELPER OF YOUR SEMICONDUCTOR WAFERS ETCH OPERATOR AT OUR OFFICE. 9. QUIT SMOKING: the [place] [employer], [employer], & [employer] have cessation resources available on their websites 10. Please have someone available to drive you home from the hospital as you may be limited by sedation medications given during the procedure. Femoral (Groin) access: 1. Do no lifting, pushing, pulling, bending, stooping, or recurrent stair climbing for 3 days following your procedure. 2. Once past the first 3 days, do not do any HEAVY exertion or lifting for one week following the procedure. No gym workouts, running, lifting greater than a gallon of milk, etc 3. Do not submerge in bath or pool for one week. OK to drive 3 days following your procedure, but if going long distance, do not go alone & take hourly breaks to get out of car and walk around. Radial Artery (Wrist) access: 1. No pushing, pulling, lifting, typing, or anything that requires repetitive use/movement of the affected wrist for 3 days following your procedure. 2. OK to drive the day following your procedure. (This is because of effects of sedating medications.) Call the office at [phone] for any questions or concerns. SERGIO GARCIA APRN Dec 25, 2018 10:22 MARTHA BELLO MD Dec 25, 2018 17:42 1: Pt. seen and examined. Agree with above [employer] AND [employer]IO note. No acute events overnight. normal exam on day of discharge DAPT with asa, prasugrel Lipids at goal Supportive care.
--- NOTE | 2018-12-25 10:25 | DISCH ---
DISCHARGE INSTRUCTIONS Condition on Discharge Condition on Discharge: Stable Activity After Discharge Activity Instructions for Disc: No restrictions, Activity as tolerated, Avoid exertion Bathing Instructions: No Tub Bath until see (or swimming for 1 week) Lifting Instructions after Dis: No heavy lifting, No pulling or pushing, Do not lift >10 pounds Driving Instructions after Dis: Do not drive (for 4-5 days) Weight Bearing Status after Di: Full weight bearing Diet after Discharge Diet after Discharge: Cardiac Diet Texture: Regular Wound Incision Care Wound/Incision Care: Other, see below (keep ring wrist site clean and dry. May shower. See diagnosis specific instructions, handout ) Contacting the DRVandana after DC Call your doctor for: Concerns you may have Treatment/Equipment after DC Adaptive Equipment Issued: None SERGIO GARCIA APRN Dec 25, 2018 10:24
[2018-12-25 10:47] VITALS: BP 125/68
--- NOTE | 2018-12-25 12:56 | NUR ---
Discharge Note: SCOTT ALCALA Discharge instructions and discharge home medications reviewed with Patient and a copy given. All questions have been answered and understanding verbalized. The following instructions and handouts were given: post cath/ stent placement, cardiac diet, CAD, cardiac rehab Discontinued lines and drains: Peripheral IV intact. Patient discharged to Home or Self Care with Self via Wheelchair
== END 2018-12-25 12:56 | disposition home or self-care (01) | DRG 246 ==
LOC: CCL 08:12 → 2 NORTH 09:40
PROVIDERS: ADMIT Internal Medicine Cardiovascular Disease; ATTEND Internal Medicine Cardiovascular Disease
PROC: 027135Z Dilation of Coronary Artery, Two Arteries with Two Drug-eluting Intraluminal Devices, Percutaneous Approach (ICD-10-PCS; principal; 2018-12-24)
PROC: B240ZZ3 Ultrasonography of Single Coronary Artery, Intravascular (ICD-10-PCS; 2018-12-24)
PROC: 4A023N7 Measurement of Cardiac Sampling and Pressure, Left Heart, Percutaneous Approach (ICD-10-PCS; 2018-12-24)
PROC: B2111ZZ Fluoroscopy of Multiple Coronary Arteries using Low Osmolar Contrast (ICD-10-PCS; 2018-12-24)
PROC: 3E033PZ Introduction of Platelet Inhibitor into Peripheral Vein, Percutaneous Approach (ICD-10-PCS; 2018-12-24)
DX: I25.10 Atherosclerotic heart disease of native coronary artery without angina pectoris (principal); I50.43 Acute on chronic combined systolic (congestive) and diastolic (congestive) heart failure; E78.5 Hyperlipidemia, unspecified; I11.0 Hypertensive heart disease with heart failure; Z79.899 Other long term (current) drug therapy; Z88.0 Allergy status to penicillin; Z88.8 Allergy status to other drugs, medicaments and biological substances; Z91.040 Latex allergy status; M81.0 Age-related osteoporosis without current pathological fracture; G20 Parkinson's disease
CPT/HCPCS: 36415; 37252; 80048; 80061; 85027; 85347; 85610; 92928; 93458; 99152; 99153; C1725; C1753; C1769; C1874; C1887; C1892; J1644; J2250; J2405; J3010; J3490; Q9967; C1713; G0378; J3246

== ENCOUNTER → 2019-11-07 | Outpatient (CLI) | payer MEDICARE, OTHER ==
[~2019-11-07] MED LIST changes: +ASPI-886 PO; +CYCL10TA2 PO; +DILT120C71 PO; +FURO20TA3 PO; -HEPARIN for ARTERIAL LINE 1,500 ML ONE; -IODIXANOL 320 MG/ML 100 ML VIAL. ONE; -LIDOCAINE 1% PF 2 ML VIAL. ONE; +PRAS10TA9 PO; +TRAM50TA PO; +magnesium PO
--- NOTE | 2019-11-08 11:52 | RAD ---
MR#: [id number] Date of Study: 11/07/2019 Ordering Physician: MARTHA BELLO, Referring Physician: MARTHA BELLO, Tech: La Reynolds, RDMS, RVT, RTR APPROVED REPORT Patient Location: OUT-PATIENT Laterality:Bilateral Indications Bruit Risk Factors Hypertension: Heart Stents Doppler Spectral Velocity Analysis Right Left pCCA 112/27 cm/spCCA 94/22 cm/s mCCA 70/19 cm/smCCA 67/21 cm/s dCCA 64/21 cm/sdCCA 62/22 cm/s Bulb 56/18 cm/sBulb 54/19 cm/s ECA 102/16 cm/sECA 90/13 cm/s pICA 107/33 cm/spICA 94/32 cm/s Edward 108/31 cm/smICA 41/15 cm/s dICA 66/23 cm/sdICA 81/22 cm/s Vert. 36/12 cm/sVert. 45/13 cm/s ICA/CCA 1.54ICA/CCA 1.40 Findings Grayscale images demonstrate moderate bilateral carotid bulb plaque. No obvious focal stenosis noted . Velocity criteria suggest overall 0 to less than 50% stenosis. Normal ICA to CCA ratios. Antegra de vertebral velocities bilaterally. Critical Notification Critical Value: No <Conclusion> 1. No significant carotid occlusive disease bilaterally. Signed by : Martha Bello, Electronically Approved : 11/08/2019 11:52:21
== END | disposition home or self-care (01) ==
LOC: US 08:45
PROVIDERS: ATTEND Internal Medicine Cardiovascular Disease
DX: I65.23 Occlusion and stenosis of bilateral carotid arteries (principal); R09.89 Other specified symptoms and signs involving the circulatory and respiratory systems; Z95.5 Presence of coronary angioplasty implant and graft
CPT/HCPCS: 93880

== ENCOUNTER → 2019-11-24 | Outpatient (CLI) | payer MEDICARE | END | disposition home or self-care (01) | LOC: LAB 14:22 | PROVIDERS: ATTEND Internal Medicine Cardiovascular Disease | DX: Z01.812 Encounter for preprocedural laboratory examination (principal); Z20.828 Contact with and (suspected) exposure to other viral communicable diseases; I25.10 Atherosclerotic heart disease of native coronary artery without angina pectoris | CPT/HCPCS: U0003-CS ==

== ENCOUNTER 2019-11-27 08:34 | Outpatient (CLI) | payer MEDICARE ==
[2019-11-27] VITALS (12 sets, daily range): BP systolic 108–136; BP diastolic 57–69
[~2019-11-27] VITALS: Ht 162.6 cm; Wt 70.3 kg
[~2019-11-27 08:34] MED LIST changes: -DILT120C71 PO; -FURO20TA3 PO; -TRAM50TA PO
[2019-11-27] MEDS ORDERED: CRESTOR40 MG PO (09:01)
[2019-11-27] MEDS ORDERED: TRAM50TA PO (09:01)
[2019-11-27] MEDS ORDERED: FURO20TA3 PO (09:01)
[2019-11-27] MEDS ORDERED: DILT120C71 PO (09:01)
[2019-11-27 09:23] LABS: HEMATOCRIT 33.6 % (36.0-47.0); HEMOGLOBIN 11.4 g/dL (12.0-15.5); RED BLOOD COUNT 3.62 x10^6/uL (3.50-5.40); RED CELL DISTRIBUTION WIDTH 12.8 % (11.5-14.5); WHITE BLOOD COUNT 6.3 x10^3/uL (4.0-11.0)
[2019-11-27 09:32] LABS: CALCIUM 8.9 mg/dL (8.5-10.1); CREATININE 1.1 mg/dL (0.6-1.0); POTASSIUM 5.1 mmol/L (3.5-5.1)
[2019-11-27 09:35] LABS: PROTHROMBIN TIME PATIENT 12.8 SEC (11.7-14.0)
[2019-11-27] MEDS ORDERED: IODIXANOL 320 MG/ML 100 ML VIAL. ONE (09:55)
[2019-11-27] MEDS ORDERED: LIDOCAINE 1% PF 2 ML VIAL. ONE (09:55)
[2019-11-27] MEDS ORDERED: HEPARIN for ARTERIAL LINE 1,500 ML ONE (09:55)
[2019-11-27] MEDS ORDERED: HEPARIN for IV BOLUS 10,000 UNIT/10 ML VIAL. ONE (10:36)
[2019-11-27] MEDS ORDERED: VERAPAMIL 5 MG/2 ML VIAL. ONE (10:36)
[2019-11-27] MEDS ORDERED: fentaNYL PF VIAL 100 MCG/2 ML VIAL ONE (10:36)
[2019-11-27] MEDS ORDERED: MIDAZOLAM HCL/PF 2 MG/2 ML VIAL. ONE (10:36)
[2019-11-27] MEDS ORDERED: NITROGLYCERIN 200 MCG/2 ML SYRINGE FOR CATH/VASC LAB. ONE (10:38)
--- NOTE | 2019-11-27 10:48 | PDOC ---
MODERATE SEDATION ASSESSMENT RISKS/ALTERNATIVES Risks/Alternatives Risks and alternatives of this type of sedation and procedure discussed with: RISK/ALTERNATIVES: Patient H & P ON CHART H & P H & P on chart and reviewed for co-morbid conditions and appropriate labs. H&P ON CHART: Yes STATUS PREG STATUS ASSESSED: N/A MEDS/ALLERGIES REVIEWED Meds/Allergies Reviewed Medications and Allergies including time and route of recently administered narcotics and sedatives. MEDS/ALLERGIES REVIEWED: Yes ASA RATING ASA RATING: II AIRWAY ASSESSMENT Airway Assessment Airway patency, oral function limitations, presence of caps, crowns, dentures, partials, and ability to extend neck assessed. AIRWAY ASSESSMENT: Yes MALLAMPATI SCORE MALLAMPATI SCORE: II PRE-SEDATION ASSESSMENT PRE-SEDATION ASSESSMENT: Yes MARTHA BELLO MD Nov 27, 2019 10:48
[2019-11-27] MEDS ORDERED: fentaNYL PF VIAL 100 MCG/2 ML VIAL IV ONE (11:15)
[2019-11-27] MEDS ORDERED: IODIXANOL 320 MG/ML 100 ML VIAL. IART ONE (11:15)
[2019-11-27] MEDS ORDERED: VERAPAMIL 5 MG/2 ML VIAL. IART ONE (11:15)
[2019-11-27] MEDS ORDERED: HEPARIN for IV BOLUS 10,000 UNIT/10 ML VIAL. IART ONE (11:15)
[2019-11-27] MEDS ORDERED: MIDAZOLAM HCL/PF 2 MG/2 ML VIAL. IV ONE (11:15)
[2019-11-27] MEDS ORDERED: NITROGLYCERIN 200 MCG/2 ML SYRINGE FOR CATH/VASC LAB. IART ONE (11:15)
[2019-11-27] MEDS ORDERED: LIDOCAINE 1% PF 2 ML VIAL. INJ ONE (11:15)
--- NOTE | 2019-11-27 11:41 | CARD ---
MR#: [id number] Date of Study: 11/27/2019 Ordering Physician: MARTHA WANG, Referring Physician: MARTHA WANG, Tech: CARLEEN SWIFT RTR APPROVED REPORT Technologist: CARLEEN SWIFT RTR Nurse: Dianne Hale R.N. Procedure(s) performed: MODERATE SEDATION TIME: 25 MIN FLUORO TIME: 3.0 MIN DOSE: 39 GYCM2 CONTRAST: 63CC VISI LHC, Coronary angiography, Left ventriculography HISTORY The patient is a 69 year-old female with a history of : previous PCI (The PCI date was ), hypertensio n. INDICATION The indication(s) include : unstable angina . CS Clinical Frailty Scale CS Clinical Frailty Scale: Managing Well Heart Failure Heart Failure: Yes If Yes, Newly Diagnosed: Yes If Yes, HF Type: Diastolic If Yes, NYHA Class: Class II CASE TECHNIQUE During this case, Fluoroscopy and low osmolar contrast were used for imaging. PROCEDURE NARRATIVE Clinical information: 69-year-old woman who presents to the hospital in the setting of unstable angina Informed consent: Written informed consent was obtained from the patient after adequate discussion of the risks and trevor efits of the procedure. Procedure details: ACCESS: The right wrist was prepped and draped in usual sterile fashion. Under 1% lidocaine local anesthesia a 6 [place] Terumo sheath was placed in the right radial artery via the Seldinger technique. DIAGNOSTIC ANGIOGRAPHY: Right and left coronary arteries were engaged with a 6 [place] TIG catheter. Diagnostic angiography i n multiple views were obtained. Next, a 6 [place] pigtail catheter was placed in the left ventricle a nd a LVEDP was measured. A pullback was performed after left ventriculography. All catheters were e xchanged over J-tip guidewire. FINDINGS: ======= Aorta: 110/80 LVEDP: 15 mmHg Left ventriculogram: Ejection fraction 55% Normal wall motion without any evidence of aortic or mitral insufficiency. Coronary angiography: LM: Large caliber vessel with normal angiographic appearance LAD: Large caliber vessel with a a patent proximal stent and mild luminal irregularities. D1: Small caliber vessel with an ostial 70% stenosis. LCX: Moderate caliber co-dominant vessel with mild luminal irregularities OM1: Moderate caliber vessel with normal angiographic appearance LPL1: Small caliber vessel with normal angiographic appearance. RCA: Small to moderate caliber co-dominant vessel with a patent mid stent and mild diffuse irregulari ties of up to 30%. RPDA: Small caliber vessel with mild luminal irregularities. CLOSURE: At case completion the right radial sheath was removed and a Terumo radial band was applied with 11 m L of air. Hemostasis was achieved. COMPLICATIONS: No acute complications noted Conclusion 1. Normal left sided filling pressures. 2. Normal LV systolic function. EF 55% 3. Two vessel coronary disease with widely patent stents. Recommendations Aggressive Medical Therapy Signed by : Martha Wang, Electronically Approved : 11/27/2019 11:40:49
--- NOTE | 2019-11-27 14:00 | NUR ---
Discharge Note: [facility] Discharge instructions and discharge home medications reviewed with Patient and a copy given. All questions have been answered and understanding verbalized. The following instructions and handouts were given: Moderate Sedation and Radial site care. Discontinued lines and drains: Left hand IV dc'd and tip intact. Patient discharged to home with daughter in law via personal vehicle.
== END 2019-11-27 14:11 | disposition home or self-care (01) ==
LOC: CCL 08:34
PROVIDERS: ATTEND Internal Medicine Cardiovascular Disease
DX: I25.110 Atherosclerotic heart disease of native coronary artery with unstable angina pectoris (principal); I10 Essential (primary) hypertension; K21.9 Gastro-esophageal reflux disease without esophagitis; Z88.0 Allergy status to penicillin; Z88.8 Allergy status to other drugs, medicaments and biological substances; Z79.82 Long term (current) use of aspirin; Z98.890 Other specified postprocedural states; Z79.899 Other long term (current) drug therapy
CPT/HCPCS: 36415; 80048; 85027; 85610; 93458; 99152; 99153; C1769; C1892; J1644; J2250; J3010; J3490; Q9967

== ENCOUNTER → 2020-01-05 | Outpatient (CLI) | payer MEDICARE ==
[2019-11-27 13:49] VITALS: BP 114/57
[~2020-01-05] MED LIST changes: +DILT120C71 PO; +FURO20TA3 PO; +TRAM50TA PO
--- NOTE | 2020-01-05 12:31 | KCIC ---
MRI Lumbar Spine without contrast History: L2-3 spondylolisthesis, chronic low back pain Technique: Multiplanar, multi sequential noncontrast MR imaging was performed of the lumbar spine. Comparison: None Findings: Lumbar vertebral body stature is maintained. There is very mild posterior subluxation L2 relative L3. There is advanced degenerative disc disease at L2-3, mild to moderate degenerative disc disease at L5-S1 and minimally at L1-L2 and L3-4, mild disc desiccation L4-5. There is a large hemangioma of T12 vertebral body. There are posterior and anterior annular tears at L4-5 and L3-4. There is L2-3 endplate edema likely reactive/degenerative in etiology. L1-L2: There is minimal posterior bulge. There is minimal buckling of the ligamentum flavum. Neural foramina and spinal canal are adequate. L2-L3: There is minimal disc osteophyte complex and bulge superimposed on the minimally posteriorly subluxed inferior L2 vertebral body margin. There is mild indentation upon the ventral thecal sac somewhat greater in the far lateral recesses bilaterally. There is mild narrowing of the far lateral recesses bilaterally greater on the right. Central canal is adequate. Neural foramina are adequate. Disc osteophyte complex and bulge is near the undersurface of the extraforaminal right L2 nerve root without significantly displacement. L3-L4: There is minimal disc osteophyte complex and bulge. There is mild facet degenerative change and buckling of the ligamentum flavum. There is mild narrowing of the far lateral recesses bilaterally somewhat greater on the left. Neural foramina are overall adequate. Minimal bulge is near the extraforaminal left L3 nerve root without significant impingement. L4-L5: There is negligible disc osteophyte complex. There is mild buckling of the ligamentum flavum and facet degenerative change. Spinal canal and neural foramina are adequate. L5-S1: There is posterior bulge, somewhat greater in the right lateral recess up to about 3 to 4 mm AP. While near, there is no significant impingement of the descending S1 nerve roots. Spinal canal is overall adequate. There is mild facet degenerative change, minimal fluid in the right facet articulation. There is moderate narrowing of the right neural foramen in part by shallow protrusion contacting undersurface exiting right L5 nerve root in the distal neural neural foramen. Left neural foramen is not significantly narrowed. Impression: 1. There is advanced L2-3 degenerative disc disease, endplate edema at this level likely reactive/degenerative in etiology. There is minimal posterior subluxation L2 relative to L3. There is multilevel lumbar facet degenerative change. 2. There is mild narrowing of the far lateral recesses at L2-3 and L3-4 as described. No significant lumbar spinal stenosis is identified. 3. There is moderate narrowing of the right L5-S1 neural foramen in part by small protrusion contacting undersurface of the exiting right L5 nerve root. Disc osteophyte complex and bulge is near the extraforaminal right L2 nerve root at L2-3. Electronically signed by: Irwin Pena MD (01/05/2020 12:27 PM) [id number]
== END ==
LOC: KCIC MRI 10:44
PROVIDERS: ATTEND Physician Assistant Medical
DX: M47.817 Spondylosis without myelopathy or radiculopathy, lumbosacral region (principal); M51.37 Other intervertebral disc degeneration, lumbosacral region; M48.07 Spinal stenosis, lumbosacral region; M25.78 Osteophyte, vertebrae
CPT/HCPCS: 72148